=== PATIENT | male | born 1975 | race Caucasian/White ===

== ENCOUNTER 2016-11-21 21:34 | Inpatient (IN) ==
[2016-11-21] MEDS ORDERED: 0.9 % Sodium Chloride 1,000 ML IVC ONE (22:06)
[2016-11-21] MEDS ORDERED: *HR* HYDROmorphone (PF) 1 MG/ML SYRINGE IVP ONE (22:06)
[2016-11-21] MEDS ORDERED: Td (TENIVAC) Vaccine 0.5 ML VIAL IM ONE (22:06)
[2016-11-21] MEDS ORDERED: Ondansetron 4 MG/2 ML VIAL IVP ONE (22:08)
--- NOTE | 2016-11-21 22:09 | Emergency Department Note ---
Disposition Clinical Impression: Cellulitis Qualifiers: Site of cellulitis: extremity Site of cellulitis of extremity: lower extremity Laterality: left Qualified Code(s): L03.116 - Cellulitis of left lower limb Disposition: Admitted As Inpatient Condition: Good Skin/Abscess/FB HPI Chief complaint: ED Skin/Abscess/Foreign Body Stated complaint: L Foot Infecion, NV Time Seen by Provider: 11/21/16 21:51 Source: patient Mode of arrival: ambulatory Limitations: no limitations Nursing Notes Reviewed: Yes Vital Signs Reviewed: Yes HPI Narrative: patient presents to the ED with complaints of infection of the left foot that started about 10 days ago. Denies any trauma, started out as a small red area of the foot. This has become progressively more red, tender, and now is open and draining. Size of approximately 6cm x 6cm with swelling and redness extending to the ankle. He states it is hard for him to walk as his legs hurt. He is also complaining of pain of the right leg with redness of the ankle, lateral malleolus, no injury and swelling of the right upper inner leg and groin. He has further noticed swelling of the wrists. He has had a fever, chills and vomiting for the last 2 days but worse today. No known history of DM, CAD, or CKD. He is a smoker. FMH: mother and sister both known diabetics. Onset (ago): day(s) (10) Tetanus Up to Date: unsure Location: LLE, RLE, L foot Severity: moderate, severe Severity scale (1-10): 10 Quality: aching Consistency: constant, Worsening Improves with: none Worsens with: none Associated symptoms: Reports: fever, chills, nausea, vomiting, malaise, cough Treatments prior to arrival: none Home Medications Medication Instructions Recorded Confirmed Bismuth Subsalicylate 20 ml PO 8XD PRN 05/16/16 11/22/16 [PEPTO-BISMOL (262mg/15mL) Susp] Albuterol Sulfate [Ventolin Hfa] 2 puff IH Q4H PRN 11/22/16 11/22/16 Buprenorphine HCl/Naloxone HCl 1 tab SL BID 11/22/16 11/22/16 [Buprenorphin-Naloxon 8-2 mg Sl] Gabapentin [Neurontin] 800 mg PO TID 11/22/16 11/22/16 Ibuprofen [Motrin] 800 mg PO Q8HR PRN 11/22/16 11/22/16 Lansoprazole [Prevacid] 30 mg PO DAILY 11/22/16 11/22/16 Ondansetron HCl [Zofran] 4 mg PO BID PRN 11/22/16 11/22/16 Ropinirole HCl [Requip] 0.5 mg PO HS 11/22/16 11/22/16 Triamcinolone Acet 0.1% CRM 1 appl TP BID PRN 11/22/16 11/22/16 [Kenalog] Allergies Allergy/AdvReac Type Severity Reaction Status Date / Time acetaminophen [From Vicodin] AdvReac Vomiting Verified 11/21/16 21:52 hydrocodone [From Vicodin] AdvReac Vomiting Verified 11/21/16 21:52 All systems ED: reviewed and negative except as stated. Constitutional: Denies: fever, chills, weakness, weight change Cardiovascular: Denies: chest pain, palpitations, dyspnea on exertion, edema, syncope Respiratory: Denies: cough, dyspnea, wheezes, hemoptysis, stridor Gastrointestinal: Reports: abdominal pain, nausea, vomiting Integumentary: Reports: other (ulceration of the left foot ) Neurological: Denies: headache, weakness, numbness, paresthesias, confusion, abnormal gait, vertigo Past Medical History - Past Medical History Attestation: Yes The following information was validated with the patient. Source: patient, nursing notes reviewed Medical history: Reports: other Surgical history: Reports: cholecystectomy, colectomy, hip replacement, other Psychiatric history: Reports: no psych history - Social History Smoking Status: Current every day smoker Smokeless Tobacco Status: No Alcohol use: Reports: none Drug use: Reports: none, opiates Physical Exam - General Limitations: no limitations General appearance: alert - Head Head exam: atraumatic, normocephalic, normal inspection - Eye Eye exam: Present: normal appearance, PERRL, EOMI - ENT ENT exam: normal exam, normal oropharynx, mucous membranes moist - Neck Neck exam: Present: normal inspection, full ROM, trachea midline - Chest Chest inspection: Present: normal inspection, symmetric chest wall rise - Respiratory Respiratory exam: Present: normal lung sounds bilaterally - Cardiovascular Cardiovascular exam: Present: regular rate, normal rhythm, normal heart sounds. Absent: tachycardia, systolic murmur, diastolic murmur, JVD - Abdominal Exam Abdominal exam: Present: soft, Non-Tender, normal bowel sounds. Absent: tenderness, distention, guarding, rebound, rigidity - Expanded Upper Extremity Exam Shoulder exam: Present: normal inspection, full ROM Arm exam: Present: normal inspection, full ROM Elbow exam: Present: normal inspection, full ROM Forearm/Wrist exam: Present: normal inspection, full ROM Hand exam: Present: normal inspection, full ROM Vascular exam: Normal: capillary refill, radial pulse - Expanded Lower Extremity Exam Hip/Pelvis exam: Present: normal inspection, full ROM Upper leg exam: Present: tenderness (right upper inner thigh, lymph node swelling of the right groin ) Knee exam: Present: normal inspection, full ROM Lower leg exam: Present: normal inspection, full ROM Ankle exam: Present: swelling (bilateral ) Foot/toe exam: Present: erythema (left ) Neurovascular/Tendon exam: Present: normal 2-point discrimination. Absent: motor deficit, sensory deficit, tendon deficit Gait: not tested/not observed - Back Exam Back exam: Present: normal inspection, full ROM. Absent: tenderness - Neurological Exam Neurological exam: Present: alert, oriented X3 - Psychiatric Psychiatric exam: Present: normal affect, normal mood - Skin Skin exam: Present: warm, dry, intact, normal color, erythema (left foot/great toe with ulceration and redness, 6 cm x 6 cm draining ) Course - Reevaluation(s) Reevaluation #1: patient's mother disclosed patient self medicates himself by "shooting up pain pills". It has been difficult obtaining IV access. Patient's mother states when he had to have colonoscopy they had to start his IV in his foot. He denies using any veins of the feet to inject pain medication. States the area on the left foot started as a small red area that was irritated by tight shoes. OARRS report obtained and reveals no prescription pain medication of record. Time: 23:03 Reevaluation #2: discussed all results with the patient and his sister. They feel he would be best if admitted to the hospital. Time: 04:35 - Consultations Consultation #1: paged the hospitalist Time: 04:20 Vital Signs Temperature 98.4 F 11/21/16 21:49 Pulse Rate 70 11/21/16 21:49 Respiratory Rate 20 11/21/16 21:49 Blood Pressure 115/78 11/21/16 21:49 O2 Sat by Pulse Oximetry 98 11/21/16 21:49 Temperature 98.0 F 11/22/16 07:26 Pulse Rate 56 11/22/16 07:26 Respiratory Rate 16 11/22/16 07:26 Blood Pressure 124/76 11/22/16 07:26 O2 Sat by Pulse Oximetry 98 11/22/16 07:26 Oxygen Delivery Oxygen Delivery Room Air Skin/Abscess/Foreign Body - Lab Data Result diagrams: 11/22/16 00:20 11/22/16 00:20 Lab Results 11/22/16 11/22/16 11/22/16 Range/Units 00:20 00:20 00:20 WBC 8.5 (4.3-11.1) K/mcL RBC 3.72 L (4.19-5.50) M/mcL Hgb 11.3 L (12.9-16.9) g/dL Hct 32.4 L (37.5-50.1) % MCV 87.1 (83.0-100.0) fL MCH 30.4 (28.0-33.3) pg MCHC 34.9 (31.6-35.5) g/dL RDW 13.6 (11.5-14.5) % Plt Count 106 L (140-400) K/mcL MPV 10.7 (9.4-12.4) fL Immature Gran % 0.4 (0-4) % Seg Neutrophils % 64.6 % Lymphocytes % 22.5 % Monocytes % 12.0 % Eosinophils % 0.4 % Basophils % 0.1 % Neutrophils # 5.5 (1.6-8.9) K/mcL Lymphocytes # 1.9 (0.6-4.6) K/mcL Monocytes # 1.0 (0.0-1.3) K/mcL Eosinophils # 0.0 (0.0-0.6) K/mcL Basophils # 0.0 (0.0-0.2) K/mcL ESR (0-10) mm/hr Sodium 139 (136-145) mEq/L Potassium 2.9 L (3.5-4.5) mEq/L Chloride 104 (98-109) mEq/L Carbon Dioxide 27 (19-29) mEq/L BUN 8 (8-26) mg/dL Creatinine 0.85 (0.72-1.25) mg/dL Est GFR ( Amer) > 60 (> 60) Est GFR (Non-Af Amer) > 60 (> 60) BUN/Creatinine Ratio 9 (6-26) Glucose 96 (70-99) mg/dL Est Mean Plasma Glucose 97 mg/dl Hemoglobin A1c 5.0 ( - 5.6) % Calculated Osmolality 286 (280-300) Lactic Acid (0.5-2.2) mmol/L Calcium 8.5 L (8.6-10.8) mg/dL C-Reactive Protein 84 H (Less than 5) mg/L 11/22/16 11/22/16 Range/Units 03:00 03:05 WBC (4.3-11.1) K/mcL RBC (4.19-5.50) M/mcL Hgb (12.9-16.9) g/dL Hct (37.5-50.1) % MCV (83.0-100.0) fL MCH (28.0-33.3) pg MCHC (31.6-35.5) g/dL RDW (11.5-14.5) % Plt Count (140-400) K/mcL MPV (9.4-12.4) fL Immature Gran % (0-4) % Seg Neutrophils % % Lymphocytes % % Monocytes % % Eosinophils % % Basophils % % Neutrophils # (1.6-8.9) K/mcL Lymphocytes # (0.6-4.6) K/mcL Monocytes # (0.0-1.3) K/mcL Eosinophils # (0.0-0.6) K/mcL Basophils # (0.0-0.2) K/mcL ESR 66 H (0-10) mm/hr Sodium (136-145) mEq/L Potassium (3.5-4.5) mEq/L Chloride (98-109) mEq/L Carbon Dioxide (19-29) mEq/L BUN (8-26) mg/dL Creatinine (0.72-1.25) mg/dL Est GFR ( Amer) (> 60) Est GFR (Non-Af Amer) (> 60) BUN/Creatinine Ratio (6-26) Glucose (70-99) mg/dL Est Mean Plasma Glucose mg/dl Hemoglobin A1c ( - 5.6) % Calculated Osmolality (280-300) Lactic Acid 0.7 (0.5-2.2) mmol/L Calcium (8.6-10.8) mg/dL C-Reactive Protein (Less than 5) mg/L Attestation Statement - Attestation Attestation: I, Malvin Urena, examined this patient and my medical decision-making was reviewed with the LOCATION DIRECTOR/PA/Advanced Practice Nurse/Resident Physician. I agree with the documented findings, disposition and treatment plan as described except to the extent set forth below. 40-year-old male presents with concerns of infection to the left foot. Patient states he had significant swelling erythema and pain to left foot over the past 1-2 weeks. Started as a small injury and progressed. He reports subjective fever at home. He reports multiple episodes of emesis. Denies syncope. Patient is unable ambulate secondary to pain. CT of the left foot and the ESR and CRP are within normal limits. She will be treated for cellulitis of the left foot with IV antibiotics and admitted for further care.
[2016-11-22 00:30] LABS: Basophils % 0.1 %; Eosinophils % 0.4 %; Hematocrit 32.4 % (37.5-50.1); Hemoglobin 11.3 g/dL (12.9-16.9); Immature Granulocytes % 0.4 % (0-4); Lymphocytes # 1.9 K/mcL (0.6-4.6); Lymphocytes % 22.5 %; Mean Corpuscular HGB Conc 34.9 g/dL (31.6-35.5); Mean Corpuscular Hemoglobin 30.4 pg (28.0-33.3); Mean Corpuscular Volume 87.1 fL (83.0-100.0); Mean Platelet Volume 10.7 fL (9.4-12.4); Neutrophils # 5.5 K/mcL (1.6-8.9); Platelet Count 106 K/mcL (140-400); Red Blood Count 3.72 M/mcL (4.19-5.50); Red Cell Distribution Width 13.6 % (11.5-14.5); Segmented Neutrophils % 64.6 %
[2016-11-22 00:43] LABS: BUN/Creatinine Ratio 9 (6-26); Blood Urea Nitrogen 8 mg/dL (8-26); Calcium 8.5 mg/dL (8.6-10.8); Carbon Dioxide 27 mEq/L (19-29); Chloride 104 mEq/L (98-109); Glucose 96 mg/dL (70-99); Osmolality,Calculated 286 (280-300); Potassium 2.9 mEq/L (3.5-4.5); Sodium 139 mEq/L (136-145); eGFR For African Americans > 60 (> 60); eGFR For Non-African Americans > 60 (> 60)
[2016-11-22] MEDS ORDERED: Piperacillin/Tazobactam 3.375 GM in D5% in Water (Mini-Bag+) 100 ML IVPB ONE (03:03)
[2016-11-22 03:22] LABS: C-Reactive Protein 84 mg/L (Less than 5)
[2016-11-22] MEDS ORDERED: Vancomycin 1,000 MG in D5% in Water 250 ML IVPB SCH (05:38)
[2016-11-22] MEDS ORDERED: Naloxone 0.4 MG/ML INJ IVP PRN (05:39)
[2016-11-22] MEDS ORDERED: Ondansetron 4 MG/2 ML VIAL IVP PRN (05:39)
[2016-11-22] MEDS ORDERED: *HR* Morphine 2 MG/ML SYRINGE IVP PRN ×2 (05:40→11:36)
[2016-11-22] MEDS ORDERED: Potassium Chloride 40 MEQ, Lidocaine 1% 2 ML in D5% in Water 500 ML IVPB ONE (05:40)
[2016-11-22] MEDS ORDERED: *HR* OxyCODONE/APAP 5/325 TABLET PO PRN (05:55)
--- NOTE | 2016-11-22 06:02 | Internal Med History&Physical ---
Date of Encounter: 11/22/16 Time of Encounter: 05:56 Assessment and Plan (1) Foot ulcer, left Current visit: Yes Status: Acute given elevated ESR and clinical evaluation, will empirically treat with IV abx continue Vancomycin and Zosyn de-escalate therapy as per clinical response and culture results f/u blood cultures wound care pain control (pt denies any adverse reaction or allergy to morphine and oxycodone) Qualifiers: Non-pressure ulcer stage: limited to breakdown of skin Qualified Code(s): L97.521 - Non-pressure chronic ulcer of other part of left foot limited to breakdown of skin (2) Hypokalemia Current visit: Yes Status: Acute K supplemented continue to monitor electrolytes and replace as needed (3) DVT prophylaxis Current visit: Yes Status: Acute Heparin SQ (4) Tobacco abuse Current visit: Yes Status: Acute smoking cessation counseling provided nicotine supplementation provided Internal Medicine - H&P: HPI Chief complaint: left foot pain Admitted From: Home Plans for Post Hospital Care: Home History of present illness: Mr. Santos is a 40 year old male with PMH of dysphagia, drug abuse, tobacco abuse who presents to ER for evaluation of worsening left foot ulcer and pain. Patient states it initially started off as a blister about 10 days ago and gradually has progressed to it's current status. Denies any trauma. Believes it was his shoes that gave him the initial blister and does not recall any trauma after. At this time patient is noted to have round ulcer at the left metatarsal head that is 6cm x 6cm with surrounding erythema and clear discharge. Reports of severe pain with difficulty with ambulation. Reports of being in good health apart from this. States he used to have history of opioid abuse but has been clean for over a year. Also states his dysphagia symptoms have resolved and currently does not take any medications at home. Reports of being an every day smoker. Denies any other discomfort at this time. No chest pain, sob, abd pain, fever, or chills. Past Med Surg Social Fam HX - Past Medical History Medical history: other Psychiatric history: no psych history - Past Surgical History Surgical History: cholecystectomy, colectomy, hip replacement, other - Social History Smoking Status: Current every day smoker Smokeless Tobacco Status: No Alcohol use: none Drug use: none, opiates Internal Medicine - H&P: Meds Bismuth Subsalicylate [PEPTO-BISMOL (262mg/15mL) Susp] 20 ml PO 8XD 05/16/16 [ History] Gabapentin [Neurontin] 300 mg PO TID 05/16/16 [History] Ibuprofen [Motrin] 200 mg PO Q6HR PRN 05/16/16 [History] Omeprazole [PriLOSEC] 40 mg PO DAILY 05/16/16 [History] Tramadol HCl [Ultram] 50 mg PO Q6-8H PRN 05/16/16 [History] Allergies acetaminophen [From Vicodin] Adverse Reaction (Verified 11/21/16 21:52) Vomiting hydrocodone [From Vicodin] Adverse Reaction (Verified 11/21/16 21:52) Vomiting All Systems PM: A 10-system review of systems was performed and is negative for pertinent findings except as documented above in the HPI. - Constitutional Constitutional: as per HPI - Constitutional Vitals: Temp Pulse Resp BP Pulse Ox 98.4 F 51 18 120/78 96 11/21/16 21:49 11/22/16 05:20 11/22/16 05:20 11/22/16 05:20 11/22/16 05:20 General appearance: Present: cooperative, A&O X 3, no acute distress, answers questions appropriately - Head Head exam: Present: atraumatic, normocephalic - Eye Eye exam: Present: normal appearance, conjuntiva pink, sclera anicteric - Respiratory Respiratory exam: Present: CTAB. Absent: accessory muscle use, rales, rhonchi, wheezes - Cardiovascular Cardiovascular exam: Present: bradycardia (asymptomatic and reports of chronically having slow HR), +S1, +S2 - GI/Abdominal GI/Abdominal exam: Present: normal bowel sounds, soft, no peritoneal signs. Absent: distended, tenderness - Extremities Exam Extremities exam: Present: warm, radial pulses palpable and symetrical. Absent : calf tenderness, pedal edema (round 6cm x 6cm ulceration noted at the left metatarsal head ) - Neurological Exam Neurological exam: Present: alert, oriented X3 - Psychiatric Psychiatric exam: Present: normal affect, normal mood Internal Med - H&P Results - Labs CBC & Chem 7: 11/22/16 00:20 11/22/16 00:20
[2016-11-22] MEDS: Vancomycin 1,250 MG in D5% in Water 250 ML IVPB SCH ×2 (06:28→19:45)
[2016-11-22] MEDS: Nicotine 21 MG PATCH.TD24 TD SCH ×2 (07:46→08:39)
[2016-11-22] MEDS ORDERED: Aminoglycoside Consult 1 EACH MC ONE (08:08)
[2016-11-22] MEDS ORDERED: traMADol 50 MG TABLET PO PRN (11:26)
[2016-11-22] MEDS ORDERED: Bismuth Subsalicylate 120 ML ORAL SUSPENSION PO PRN (11:36)
--- NOTE | 2016-11-22 11:45 | Event Note ---
Date of Encounter: 11/22/16 Time of Encounter: 09:15 Patient seen and examined. On examination, patient resting supine in bed. Patient stating his pain is severe and uncontrolled. He states that he has to keep his foot covered "because the air makes it burn." CT of negative for osteomyelitis. Patient is not diabetic-A1c 5.0%. Inflammatory markers elevated , will trend. Continue vancomycin and Zosyn and follow culture results. Hypokalemia noted and has been replaced, will recheck in the morning as well as a magnesium level. Patient has never had wounds like this before, podiatry brought on board, appreciate their recommendations. Patient with remote history of IV drug abuse, patient stating he has been clean for 1 year. He is endorsing compliance with Suboxone. According Suboxone at this time and giving pain medications. OARRS report checks out for Suboxone and gabapentin. ITS Impressions Foot CT 11/22/16 03:01 IMPRESSION: No radiographic evidence for osteomyelitis. D/ / Tariq Parks MD / Tariq Parks MD Interpreting Provider: Tariq Parks MD
[2016-11-22] MEDS: Piperacillin/Tazobactam 3.375 GM in D5% in Water (Mini-Bag+) 100 ML IVPB SCH ×3 (12:38→23:57)
--- NOTE | 2016-11-22 13:02 | Podiatry Consult Note ---
Date of Encounter: 11/22/16 Time of Encounter: 12:00 Assessment and Plan (1) Foot ulcer, left Current visit: Yes Status: Acute Ulceration to the medial aspect of the left metatarsal head secondary to a blister. Ulceration is scabbed, unable to express any drainage. There is light periwound erythema present, no streaking, no ascending cellulitis, no fluctuance , no warmth. ESR: 66, CRP: 84, WBC: 8.[address] of the foot was negative for osteomyelitis or any fluid collection. No surgical intervention needed at this time. Wound cultures obtained and pending. We will continue to monitor the wound. Recommend daily wound care and oral antibiotics based on sensitivity report upon discharge. Wound care: cleanse ulcer daily, pat dry, apply dry sterile 4x4 gauze, kerlix and tape. Will need post op shoe upon discharge. F/u in Podiatry clinic with in one week of discharge from hospital. Consulted with Dr. Melara and agreeable with plan of care. Qualifiers: Non-pressure ulcer stage: limited to breakdown of skin Qualified Code(s): L97.521 - Non-pressure chronic ulcer of other part of left foot limited to breakdown of skin History of Present Illness HPI: Mr. Santos is a 40 year old male admitted to [facility] for an ulceration to the left foot and hypokalemia. Patient states a blister started to the medial aspect of his left foot 2 weeks ago from his tennis shoe. Patient states his foot became progressively red, swollen, and painful. No known injury or trauma. Rates pain to the left foot currently at a 7 out of 10. Patient denies any fever, chills, nausea vomiting or flulike symptoms. Patient denies any history of diabetes mellitus. Patient denies any history of drug abuse. After reviewing chart patient does have a history of IV drug abuse and is on Suboxone. Past Med Surg Social Fam HX - Past Medical History Medical history: other Psychiatric history: no psych history - Past Surgical History Surgical History: cholecystectomy, colectomy, hip replacement, other - Social History Smoking Status: Current every day smoker Smokeless Tobacco Status: No Alcohol use: none Drug use: none, opiates Medications and Allergies Bismuth Subsalicylate [PEPTO-BISMOL (262mg/15mL) Susp] 20 ml PO 8XD PRN [History] Albuterol Sulfate [Ventolin Hfa] 2 puff IH Q4H PRN 11/22/16 [History] Buprenorphine HCl/Naloxone HCl [Buprenorphin-Naloxon 8-2 mg Sl] 1 tab SL BID [History] Gabapentin [Neurontin] 800 mg PO TID 11/22/16 [History] Ibuprofen [Motrin] 800 mg PO Q8HR PRN 11/22/16 [History] Lansoprazole [Prevacid] 30 mg PO DAILY 11/22/16 [History] Ondansetron HCl [Zofran] 4 mg PO BID PRN 11/22/16 [History] Ropinirole HCl [Requip] 0.5 mg PO HS 11/22/16 [History] Triamcinolone Acet 0.1% CRM [Kenalog] 1 appl TP BID PRN 11/22/16 [History] Allergies acetaminophen [From Vicodin] Adverse Reaction (Verified 11/21/16 21:52) Vomiting hydrocodone [From Vicodin] Adverse Reaction (Verified 11/21/16 21:52) Vomiting All Systems Reviewed: A 10-system review of systems was performed and is negative for pertinent findings except as documented above in the HPI. Physical Exam - Constitutional Vitals: Temp Pulse Resp BP Pulse Ox 98.1 F 52 16 123/84 98 11/22/16 12:05 11/22/16 12:05 11/22/16 12:05 11/22/16 12:05 11/22/16 12:05 Exam: General appearance: alert awake oriented X 3. Calm and pleasant, no acute distress.. Vascular: Pedal pulses +2/4 DP/PT , No evidence of cyanosis, pallor or rubor, Edema graded at 1+/4, Skin Temperature warm, No calf pain with manual compression. capillary refill time is immediate to digits. Neurologic: Sensation intact with light touch to both feet Wound: Ulceration to the medial aspect of the left foot at the 1st metatarsal head measuring 6 cm in length x 6 cm in width. Dried scab to base of wound with light periwound erythema, no streaking, no ascending cellulitis, no pus, no odor , no active drainage, no fluctuance, no warmth. Results - Labs Result Diagrams: 11/22/16 00:20 11/22/16 00:20 Labs: Abnormal lab results RBC 3.72 M/mcL (4.19-5.50) L 11/22/16 00:20 Hgb 11.3 g/dL (12.9-16.9) L 11/22/16 00:20 Hct 32.4 % (37.5-50.1) L 11/22/16 00:20 Plt Count 106 K/mcL (140-400) L 11/22/16 00:20 ESR 66 mm/hr (0-10) H 11/22/16 03:05 Potassium 2.9 mEq/L (3.5-4.5) L 11/22/16 00:20 Calcium 8.5 mg/dL (8.6-10.8) L 11/22/16 00:20 C-Reactive Protein 84 mg/L (Less than 5) H 11/22/16 00:20 All other labs normal. Consult Discharge Plan - Plan Referrals: Radha Pike MD [Non-Partnered Physician] -
[2016-11-22] MEDS: *HR* Heparin 5,000 UNIT/ML VIAL SQ SCH ×2 (15:33→21:11)
[2016-11-22] MEDS: Gabapentin 400 MG CAPSULE PO SCH ×2 (15:33→19:55)
[2016-11-22] MEDS: Ibuprofen 400 MG TABLET PO PRN (15:34)
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
[2016-11-22] MEDS: *HR* HYDROmorphone (PF) 1 MG/ML SYRINGE IVP PRN ×3 (16:59→22:39)
[2016-11-22] MEDS: rOPINIRole 0.25 MG TABLET PO SCH (19:56)
[2016-11-23] MEDS: *HR* HYDROmorphone (PF) 1 MG/ML SYRINGE IVP PRN ×9 (03:05→23:59)
[2016-11-23 03:45] LABS: blaKPC Carbapenem-Resist Gene Not Detected (Not Detect)
[2016-11-23 03:46] LABS: Acinetobacter baumannii by PCR Not Detected (Not Detect); Candida albicans by PCR Not Detected (Not Detect); Candida glabrata by PCR Not Detected (Not Detect); Candida krusei by PCR Not Detected (Not Detect); Candida parapsilosis by PCR Not Detected (Not Detect); Candida tropicalis by PCR Not Detected (Not Detect); Enterococcus by PCR Not Detected (Not Detect); Escherichia coli by PCR Not Detected (Not Detect); Klebsiella oxytoca by PCR Not Detected (Not Detect); Klebsiella pneumoniae by PCR Not Detected (Not Detect); Pseudomonas aeruginosa by PCR Not Detected (Not Detect); Serratia marcescens by PCR Not Detected (Not Detect); Staphylococcus aureus by PCR Not Detected (Not Detect); Streptococcus agalactiae(B)PCR Not Detected (Not Detect); Streptococcus by PCR Not Detected (Not Detect); Streptococcus pneumoniae PCR Not Detected (Not Detect); Streptococcus pyogenes (A) PCR Not Detected (Not Detect)
[2016-11-23] MEDS: Vancomycin 1,250 MG in D5% in Water 250 ML IVPB SCH (05:27)
[2016-11-23] MEDS: *HR* Heparin 5,000 UNIT/ML VIAL SQ SCH ×3 (05:30→20:14)
[2016-11-23] MEDS: Gabapentin 400 MG CAPSULE PO SCH ×3 (08:45→20:16)
[2016-11-23] MEDS: Piperacillin/Tazobactam 3.375 GM in D5% in Water (Mini-Bag+) 100 ML IVPB SCH ×3 (08:45→23:58)
[2016-11-23] MEDS: Nicotine 21 MG PATCH.TD24 TD SCH (08:55)
[2016-11-23 09:06] LABS: BUN/Creatinine Ratio 8 (6-26); Blood Urea Nitrogen 6 mg/dL (8-26); Calcium 7.9 mg/dL (8.6-10.8); Carbon Dioxide 25 mEq/L (19-29); Chloride 107 mEq/L (98-109); Glucose 86 mg/dL (70-99); Magnesium 1.2 mg/dL (1.6-2.6); Osmolality,Calculated 283 (280-300); Phosphorous 2.8 mg/dL (2.3-4.7); Potassium 3.1 mEq/L (3.5-4.5); Sodium 138 mEq/L (136-145); eGFR For African Americans > 60 (> 60); eGFR For Non-African Americans > 60 (> 60)
[2016-11-23 09:25] LABS: C-Reactive Protein 74 mg/L (Less than 5)
[2016-11-23 09:32] LABS: Basophils % 0.3 %; Eosinophils # 0.2 K/mcL (0.0-0.6); Eosinophils % 2.1 %; Hematocrit 30.9 % (37.5-50.1); Hemoglobin 10.8 g/dL (12.9-16.9); Immature Granulocytes % 0.5 % (0-4); Lymphocytes # 2.2 K/mcL (0.6-4.6); Lymphocytes % 29.2 %; Mean Corpuscular Hemoglobin 29.9 pg (28.0-33.3); Mean Corpuscular Volume 85.6 fL (83.0-100.0); Mean Platelet Volume 11.1 fL (9.4-12.4); Monocytes # 0.9 K/mcL (0.0-1.3); Monocytes % 11.4 %; Neutrophils # 4.3 K/mcL (1.6-8.9); Platelet Count 125 K/mcL (140-400); Red Blood Count 3.61 M/mcL (4.19-5.50); Red Cell Distribution Width 13.2 % (11.5-14.5); Segmented Neutrophils % 56.5 %
[2016-11-23] MEDS ORDERED: *HR* Heparin 5,000 UNIT/ML VIAL IVP ONE (11:45)
[2016-11-23] MEDS ORDERED: *HR* Heparin 5,000 UNIT/ML VIAL IVP PRN (11:45)
[2016-11-23 12:51] LABS: Hematocrit 32.6 % (37.5-50.1); Hemoglobin 11.4 g/dL (12.9-16.9); Mean Corpuscular Hemoglobin 29.8 pg (28.0-33.3); Mean Corpuscular Volume 85.3 fL (83.0-100.0); Platelet Count 129 K/mcL (140-400); Red Blood Count 3.82 M/mcL (4.19-5.50); Red Cell Distribution Width 13.2 % (11.5-14.5)
[2016-11-23 13:01] LABS: INR 1.3; Prothrombin Time 14.3 Seconds (9.4-12.1)
[2016-11-23 13:04] LABS: Activated Partial Thrombo Time 33.6 Seconds (26.0-36.0)
[2016-11-23] MEDS: Heparin 25,000 UNIT/500 ML D5W 25,000 UNIT/500 ML MLS IVC SCH (13:46)
[2016-11-23] MEDS ORDERED: 0.9 % Sodium Chloride 1,000 ML ONE (13:48)
--- NOTE | 2016-11-23 16:40 | Podiatry Progress Note ---
Date of Encounter: 11/24/16 Time of Encounter: 16:00 - Assessment and Plan (1) Foot ulcer, left Current Visit: Yes Status: Acute Ulceration to the medial aspect of the left metatarsal head secondary to a blister. Ulceration is scabbed, unable to express any drainage. There is light periwound erythema present, no streaking, no ascending cellulitis, no fluctuance , no warmth. Xray of left foot negative for fracture, dislocation, or bony erosion. CT of the foot was negative for osteomyelitis or any fluid collection. No surgical intervention needed at this time. Wound cultures obtained and pending. We will continue to monitor the wound. Recommend daily wound care and antibiotics per Hospitalist. Blood culture growing Enterobacteriacae group. Wound care: cleanse ulcer daily, pat dry, apply dry sterile 4x4 gauze, kerlix and tape. Will need post op shoe upon discharge. F/u in Podiatry clinic with in one week of discharge from hospital. Consulted with Dr. Melara and agreeable with plan of care. Qualifiers: Non-pressure ulcer stage: limited to breakdown of skin Qualified Code(s): L97.521 - Non-pressure chronic ulcer of other part of left foot limited to breakdown of skin (2) Thrombosis of right lower extremity Current Visit: Yes Status: Acute Preliminary report showed right GSV thrombus from CFV to below the knee. Left lower extremity no DVT or SVT. Currently on Herparin drip. Subjective Interval history: Podiatry was consulted yesterday for an ulcer to the left foot. Wound care ordered for daily dressing changes. A dressing is dry and intact to the left foot. He rates his left foot pain at a 6 out of 10. During the exam yesterday patient denied drug abuse. 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 He states the wound to the left foot was not from injecting. He states a metal alix indented his steel toed boots which caused a blister to form. Patient had a venous duplex done of BLE and Preliminary report showed right GSV thrombus from CFV to below the knee. Left lower extremity no DVT or SVT. No c/o fever or chills overnight. Objective - Vital Signs Vital Signs: Vital Signs Temp Pulse Resp BP Pulse Ox 11/23/16 11:43 98.2 F 56 16 125/81 99 11/23/16 07:03 98.8 F 60 16 123/81 98 11/23/16 02:57 98.7 F 67 14 146/87 97 11/23/16 00:06 98.7 F 52 17 106/65 97 11/22/16 19:40 99 11/22/16 19:17 98.0 F 54 17 112/64 99 Intake and Output 11/23/16 11/23/16 11/23/16 07:59 15:59 23:59 Intake Total 800 / 800 720 / 720 Output Total 350 / 350 Balance 450 / 450 720 / 720 Intake: IV Fluids 100 / 100 Zosyn 3.375 GM In 100 / 100 Dextrose 5% (Minibag+) 100 ML 100 ML @ 25 mls/hr IVPB Q8HR [facility] Rx#: [id number] Oral 700 / 700 720 / 720 Output: Urine 350 / 350 Other: Meal Lunch Percent of Meal Consumed 40% Weight 67.585 kg Patient Weight 11/23/16 23:59 Weight 67.585 kg - Exam Exam: General appearance: alert awake oriented X 3. Calm and pleasant, no acute distress.. Vascular: Pedal pulses +2/4 DP/PT , No evidence of cyanosis, pallor or rubor, Edema graded at 1+/4, Skin Temperature warm, No calf pain with manual compression. capillary refill time is immediate to digits. Neurologic: Sensation intact with light touch to both feet Wound: Ulceration to the medial aspect of the left foot at the 1st metatarsal head measuring 2 cm in length x 2 cm in width. Dried scab to base of wound with light periwound erythema, no streaking, no ascending cellulitis, no pus, no odor , no active drainage, no fluctuance, no warmth. Localized erythema to the medial maleolus, right with pinpoint scabs secondary to injection. No warmth, no open area, no fluctuance, no evidence of bacterial infection, no streaking, no ascending cellulitis. - Lab Result Diagrams: 11/23/16 12:41 11/23/16 08:17 Labs: Abnormal lab results RBC 3.82 M/mcL (4.19-5.50) L 11/23/16 12:41 Hgb 11.4 g/dL (12.9-16.9) L 11/23/16 12:41 Hct 32.6 % (37.5-50.1) L 11/23/16 12:41 Plt Count 129 K/mcL (140-400) L 11/23/16 12:41 ESR 97 mm/hr (0-10) H 11/23/16 08:17 PT 14.3 Seconds (9.4-12.1) H 11/23/16 12:41 Potassium 3.1 mEq/L (3.5-4.5) L 11/23/16 08:17 BUN 6 mg/dL (8-26) L 11/23/16 08:17 Calcium 7.9 mg/dL (8.6-10.8) L 11/23/16 08:17 Magnesium 1.2 mg/dL (1.6-2.6) L 11/23/16 08:17 C-Reactive Protein 74 mg/L (Less than 5) H 11/23/16 08:17 Enterobacteriac sp PCR DETECTED (Not Detect) A 11/22/16 00:20 Consult Discharge Plan - Plan Referrals: Radha Pike MD [Non-Partnered Physician] -
--- NOTE | 2016-11-23 17:09 | Internal Med Progress Note ---
Date of Encounter: 11/23/16 Time of Encounter: 17:06 - Assessment and plan (1) Thrombosis of right lower extremity Current Visit: Yes Status: Acute Assessment and plan: most likely 2/2 IVDU with bacteremia, not septic at this time. will start on heparin drip will switch to oral AC once ready for dc. (2) Bacteremia due to Enterobacter species Current Visit: Yes Status: Acute Assessment and plan: source possible IVDA vs the rt. foot wound. blood cx growing enterobacter species. will continue zosyn, dc vanco. no fever, no leucocytosis. will repeat blood cx today. follow final cx sensitivity result will order ECHO> will most likely need 2 weeks of IV antibiotics(starting from the day of the negative blood cx) patinet is high risk given bacteremia and need for roasterman IV antibiotics. (3) Foot ulcer, left Current Visit: Yes Status: Acute Assessment and plan: management as per podiatry Qualifiers: Non-pressure ulcer stage: limited to breakdown of skin Qualified Code(s): L97.521 - Non-pressure chronic ulcer of other part of left foot limited to breakdown of skin (4) Cellulitis Current Visit: Yes Status: Acute Assessment and plan: CT rt. leg shows cellulitis medial aspect of the thigh. no abscess, no surgical intervention needed at this time minimal redness and swelling at this time. will continue zosyn for now. Qualifiers: Site of cellulitis: extremity Site of cellulitis of extremity: lower extremity Laterality: left Qualified Code(s): L03.116 - Cellulitis of left lower limb - Subjective Interval history: patinet seen at the bedside, c/o pain on the right medial thigh. no fever, rt. foot wound being followed by podiatry. denies chest pain or sob. admits to shooting IV drugs recently. - Constitutional Vitals: Temp Pulse Resp BP Pulse Ox 98.2 F 56 16 125/81 99 11/23/16 11:43 11/23/16 11:43 11/23/16 11:43 11/23/16 11:43 11/23/16 11:43 General appearance: Present: cooperative, A&O X 3, no acute distress, answers questions appropriately Internal Medicine: Result - Labs CBC & Chem 7: 11/23/16 12:41 11/23/16 08:17 Labs: Short CBC 11/23/16 11/23/16 Range/Units 08:17 12:41 WBC 7.6 7.4 (4.3-11.1) K/mcL Hgb 10.8 L 11.4 L (12.9-16.9) g/dL Hct 30.9 L 32.6 L (37.5-50.1) % Plt Count 125 L 129 L (140-400) K/mcL Neutrophils # 4.3 (1.6-8.9) K/mcL BMP 11/23/16 08:17 Sodium 138 Potassium 3.1 L Chloride 107 Carbon Dioxide 25 BUN 6 L Creatinine 0.72 Glucose 86 Calcium 7.9 L - ABG Interpretation ABG results: PT/INR, D-dimer PT 14.3 Seconds (9.4-12.1) H 11/23/16 12:41 - Impressions Impressions Lower Extremity CT 11/23/16 03:29 IMPRESSION: Cellulitis of the medial thigh and medial proximal lower leg without abscess or evidence for osteomyelitis. D/ / Tariq Parks MD / Tariq Parks MD Interpreting Provider: Tariq Parks MD Consult Discharge Plan - Plan Referrals: Radha Pike MD [Non-Partnered Physician] -
[2016-11-23] MEDS: rOPINIRole 0.25 MG TABLET PO SCH (20:16)
[2016-11-23] MEDS: *HR* Heparin 5,000 UNIT/ML VIAL IVP PRN (21:02)
[2016-11-24] MEDS: *HR* HYDROmorphone (PF) 1 MG/ML SYRINGE IVP PRN ×8 (02:34→23:04)
[2016-11-24] MEDS: *HR* Heparin 5,000 UNIT/ML VIAL IVP PRN ×2 (03:18→11:08)
[2016-11-24] MEDS: Nicotine 21 MG PATCH.TD24 TD SCH (08:05)
[2016-11-24] MEDS: Gabapentin 400 MG CAPSULE PO SCH ×3 (08:05→20:42)
[2016-11-24] MEDS: Piperacillin/Tazobactam 3.375 GM in D5% in Water (Mini-Bag+) 100 ML IVPB SCH ×3 (08:06→23:04)
[2016-11-24] MEDS: Heparin 25,000 UNIT/500 ML D5W 25,000 UNIT/500 ML MLS IVC SCH (14:32)
--- NOTE | 2016-11-24 15:08 | Podiatry Progress Note ---
Date of Encounter: 11/24/16 Time of Encounter: 12:15 - Assessment and Plan (1) Foot ulcer, left Current Visit: Yes Status: Acute Ulceration to the medial aspect of the left metatarsal head secondary to a blister. Ulceration is scabbed, unable to express any drainage. Decreased periwound erythema present, no streaking, no ascending cellulitis, no fluctuance, no warmth. No regression in ulceration. Xray of left foot negative for fracture, dislocation, or bony erosion. CT of the foot was negative for osteomyelitis or any fluid collection. No surgical intervention needed at this time. We will continue to monitor the wound. Recommend daily wound care and antibiotics per Hospitalist. Blood culture growing Enterobacteriacae group. Wound care: cleanse ulcer daily, pat dry, apply dry sterile 4x4 gauze, kerlix and tape. Will need post op shoe upon discharge. F/u in Podiatry clinic with in one week of discharge from hospital. Consulted with Dr. Melara and agreeable with plan of care. Qualifiers: Non-pressure ulcer stage: limited to breakdown of skin Qualified Code(s): L97.521 - Non-pressure chronic ulcer of other part of left foot limited to breakdown of skin (2) Thrombosis of right lower extremity Current Visit: Yes Status: Acute Preliminary report showed right GSV thrombus from CFV to below the knee. Left lower extremity no DVT or SVT. Currently on Heparin drip. Subjective Interval history: Patient is sitting A dressing is dry and intact to the left foot. He rates his left foot pain at a 6 out of 10. Patient had a venous duplex done of BLE and Preliminary report showed right GSV thrombus from CFV to below the knee. Left lower extremity no DVT or SVT. No c/o fever or chills overnight. Objective - Vital Signs Vital Signs: Vital Signs Temp Pulse Resp BP Pulse Ox 11/24/16 14:57 98.2 F 55 16 114/72 98 11/24/16 10:59 98.0 F 58 16 119/72 98 11/24/16 07:09 98.2 F 53 16 142/95 97 11/23/16 22:56 99.0 F 57 15 127/82 97 11/23/16 20:24 98 11/23/16 19:49 100.0 F H 61 15 133/86 98 Intake and Output 11/23/16 11/24/16 11/24/16 23:59 07:59 15:59 Intake Total 635 / 635 727 / 727 938 / 938 Output Total 300 / 300 700 / 700 450 / 450 Balance 335 / 335 27 / 27 488 / 488 Intake: IV Fluids 235 / 235 227 / 227 338 / 338 Heparin 25,000 UNIT/500 135 / 135 127 / 127 238 / 238 ML D5W 25,000 unit In 500 ml @ 14 UNIT/KG/HR 18. 924 mls/hr IVC .Q24H [facility] Rx#:[id number] Zosyn 3.375 GM In 100 / 100 100 / 100 100 / 100 Dextrose 5% (Minibag+) 100 ML 100 ML @ 25 mls/hr IVPB Q8HR [facility] Rx#: [id number] Oral 400 / 400 500 / 500 600 / 600 Output: Urine 300 / 300 700 / 700 450 / 450 Other: Meal Lunch Percent of Meal Consumed 75% - Exam Exam: General appearance: alert awake oriented X 3. Calm and pleasant, no acute distress.. Vascular: Pedal pulses +2/4 DP/PT , No evidence of cyanosis, pallor or rubor, Edema graded at 1+/4, Skin Temperature warm, No calf pain with manual compression. capillary refill time is immediate to digits. Neurologic: Sensation intact with light touch to both feet Wound: Ulceration to the medial aspect of the left foot at the 1st metatarsal head measuring 2 cm in length x 2 cm in width. Dried scab to base of wound with light periwound erythema, no streaking, no ascending cellulitis, no pus, no odor , no active drainage, no fluctuance, no warmth. Localized erythema to the medial malleolus, right with pinpoint scabs secondary to IV drug use. No warmth, no open area, no fluctuance, no evidence of bacterial infection, no streaking, no ascending cellulitis. - Lab Result Diagrams: 11/23/16 12:41 11/23/16 08:17 Labs: Abnormal lab results RBC 3.82 M/mcL (4.19-5.50) L 11/23/16 12:41 Hgb 11.4 g/dL (12.9-16.9) L 11/23/16 12:41 Hct 32.6 % (37.5-50.1) L 11/23/16 12:41 Plt Count 129 K/mcL (140-400) L 11/23/16 12:41 ESR 97 mm/hr (0-10) H 11/23/16 08:17 PT 14.3 Seconds (9.4-12.1) H 11/23/16 12:41 APTT 54.6 Seconds (26.0-36.0) H 11/24/16 09:20 Potassium 3.1 mEq/L (3.5-4.5) L 11/23/16 08:17 BUN 6 mg/dL (8-26) L 11/23/16 08:17 Calcium 7.9 mg/dL (8.6-10.8) L 11/23/16 08:17 Magnesium 1.2 mg/dL (1.6-2.6) L 11/23/16 08:17 C-Reactive Protein 74 mg/L (Less than 5) H 11/23/16 08:17 Enterobacteriac sp PCR DETECTED (Not Detect) A 11/22/16 00:20 Consult Discharge Plan - Plan Referrals: Radha Pike MD [Non-Partnered Physician] -
--- NOTE | 2016-11-24 16:09 | Internal Med Progress Note ---
Date of Encounter: 11/24/16 Time of Encounter: 16:05 - Assessment and plan (1) Thrombosis of right lower extremity Current Visit: Yes Status: Acute Assessment and plan: most likely 2/2 IVDU with bacteremia, not septic at this time. continue heparin drip for now will switch to oral AC once ready for dc. (2) Bacteremia due to Enterobacter species Current Visit: Yes Status: Acute Assessment and plan: source possible IVDA vs the rt. foot wound. blood cx growing enterobacter species. will continue zosyn no fever, no leucocytosis. f/u repeat blood cx follow final cx sensitivity result ECHO with no vegetations will most likely need 2 weeks of IV antibiotics(starting from the day of the negative blood cx) patinet is high risk given bacteremia and need for residential IV antibiotics. (3) Foot ulcer, left Current Visit: Yes Status: Acute Assessment and plan: management as per podiatry Qualifiers: Non-pressure ulcer stage: limited to breakdown of skin Qualified Code(s): L97.521 - Non-pressure chronic ulcer of other part of left foot limited to breakdown of skin (4) Cellulitis Current Visit: Yes Status: Acute Assessment and plan: CT rt. leg shows cellulitis medial aspect of the thigh. no abscess, no surgical intervention needed at this time minimal redness and swelling at this time. will continue zosyn for now. Qualifiers: Site of cellulitis: extremity Site of cellulitis of extremity: lower extremity Laterality: left Qualified Code(s): L03.116 - Cellulitis of left lower limb - Subjective Interval history: patiashli seen at the bedside,lying in bed in no acute distress, c/o some pain on the right medial thigh. no fever, rt. foot wound being followed by podiatry. denies chest pain or sob. admits to shooting IV drugs recently. - Constitutional Vitals: Temp Pulse Resp BP Pulse Ox 98.2 F 55 16 114/72 98 11/24/16 14:57 11/24/16 14:57 11/24/16 14:57 11/24/16 14:57 11/24/16 14:57 General appearance: Present: cooperative, A&O X 3, no acute distress, answers questions appropriately Exam: - Head Head exam: Present: atraumatic, normocephalic - Eye Eye exam: Present: normal appearance, conjuntiva pink, sclera anicteric - Respiratory Respiratory exam: Present: CTAB. Absent: accessory muscle use, rales, rhonchi, wheezes - Cardiovascular Cardiovascular exam: Present: bradycardia (asymptomatic and reports of chronically having slow HR), +S1, +S2 - GI/Abdominal GI/Abdominal exam: Present: normal bowel sounds, soft, no peritoneal signs. Absent: distended, tenderness - Extremities Exam Extremities exam: Present: warm, radial pulses palpable and symetrical. mild redness on the medical aspect of the right thigh. Absent: calf tenderness, pedal edema (round 6cm x 6cm ulceration noted at the left metatarsal head ) - Neurological Exam Neurological exam: Present: alert, oriented X3 - Psychiatric Psychiatric exam: Present: normal affect, normal mood Internal Medicine: Result - Labs CBC & Chem 7: 11/23/16 12:41 11/23/16 08:17 - ABG Interpretation ABG results: PT/INR, D-dimer PT 14.3 Seconds (9.4-12.1) H 11/23/16 12:41 Consult Discharge Plan - Plan Referrals: Radha Pike MD [Non-Partnered Physician] -
--- NOTE | 2016-11-24 17:11 | Venous Imaging Report ---
LE Venous Duplex Patient Name:Rojas Santos Order Number:[id number] Procedure Date:11/23/2016 Date:1975Age:40 yrs Gender:Male Location:[facility] Room #: 3B44 Information Resource Consultant:Rafat Boone RN Referring MD:Eliana Hussein MD mental health consultant:None Reading MD:Javier Chavez MD Primary Indications:Pain in limb Secondary Indications: Risk Factors Yes/No Smoking Current Yes Anticoagulants No Previous Vascular Surgery No Hx of DVT No Hx of Chemotherapy No Trauma to Veins No Recent Surgery No Hx of Superficial Phlebitis No [place] Filter No Impressions: Bilateral lower extremity: normal deep exam. Lower extremity abnormal superficial exam: right great saphenousvein demonstrates acute thrombosis. Recommendations: Test completed on 11/23/2016 at 11:30:00 am. Findings Venous Duplex Results: Right: Venous imaging of the lower extremity reveals full patency and normal vessel compressibility of the right distal iliac, right common femoral, right superficial femoral, right popliteal, right posterior tibial, right peroneal and right lesser saphenous. Doppler signals in the evaluated veins were normal. There is an acute thrombus seen in the right great saphenous. It demonstrates an incompressible vein. Flow was absent and it did not augment. There is an acute thrombus seen in the right great saphenous above knee. It demonstrates an incompressible vein. Flow was absent and it did not augment. There is an acute thrombus seen in the right great saphenous below knee. It demonstrates an incompressible vein. Flow was phasic and it did not augment. Left: Venous imaging of the lower extremity reveals full patency and normal vessel compressibility of the left distal iliac, left common femoral, left superficial femoral, left popliteal, left posterior tibial, left peroneal, left great saphenous and left lesser saphenous. Doppler signals in the evaluated veins were normal. Prior Study: No prior study available for comparison. Lower Extremity Venous Duplex Side Vein Compress Spontaneous Flow Augment Diameter (cm) Depth (cm) Right Distal Iliac Normal Yes Phasic Yes Right Common Femoral Normal Yes Phasic Yes Right Superficial Femoral Normal Yes Phasic Yes Right Popliteal Normal Yes Phasic Yes Right Posterior Tibial Normal Yes Phasic Yes Right Peroneal Normal Yes Phasic Yes Right Great Saphenous None no Absent no Right Great Saphenous [place] None no Absent no Right Great Saphenous BK None no Phasic no Right Lesser Saphenous Normal Yes Phasic Yes Left Distal Iliac Normal Yes Phasic Yes Left Common Femoral Normal Yes Phasic Yes Left Superficial Femoral Normal Yes Phasic Yes Left Popliteal Normal Yes Phasic Yes Left Posterior Tibial Normal Yes Phasic Yes Left Peroneal Normal Yes Phasic Yes Left Great Saphenous Normal Yes Phasic Yes Left Lesser Saphenous Normal Yes Phasic Yes Updated by Javier Chavez MD on 11/24/2016 5:04:43 PM electronically signed on 11/24/2016 5:04:53 PM with status of Final
[2016-11-24] MEDS: rOPINIRole 0.25 MG TABLET PO SCH (20:42)
[2016-11-25] MEDS: *HR* HYDROmorphone (PF) 1 MG/ML SYRINGE IVP PRN ×12 (01:04→23:26)
[2016-11-25 01:06] LABS: Basophils % 0.5 %; Eosinophils # 0.4 K/mcL (0.0-0.6); Eosinophils % 5.4 %; Hematocrit 29.1 % (37.5-50.1); Hemoglobin 10.1 g/dL (12.9-16.9); Immature Granulocytes % 0.2 % (0-4); Lymphocytes # 2.3 K/mcL (0.6-4.6); Lymphocytes % 34.1 %; Mean Corpuscular HGB Conc 34.7 g/dL (31.6-35.5); Mean Corpuscular Hemoglobin 29.5 pg (28.0-33.3); Mean Corpuscular Volume 85.1 fL (83.0-100.0); Mean Platelet Volume 9.6 fL (9.4-12.4); Monocytes # 0.7 K/mcL (0.0-1.3); Monocytes % 11.1 %; Neutrophils # 3.3 K/mcL (1.6-8.9); Platelet Count 145 K/mcL (140-400); Red Blood Count 3.42 M/mcL (4.19-5.50); Segmented Neutrophils % 48.7 %
[2016-11-25 01:20] LABS: BUN/Creatinine Ratio 7 (6-26); Blood Urea Nitrogen 6 mg/dL (8-26); Calcium 8.2 mg/dL (8.6-10.8); Carbon Dioxide 29 mEq/L (19-29); Chloride 103 mEq/L (98-109); Glucose 105 mg/dL (70-99); Osmolality,Calculated 286 (280-300); Potassium 2.6 mEq/L (3.5-4.5); Sodium 139 mEq/L (136-145); eGFR For African Americans > 60 (> 60); eGFR For Non-African Americans > 60 (> 60)
[2016-11-25] MEDS: *HR* Heparin 5,000 UNIT/ML VIAL IVP PRN (03:24)
[2016-11-25] MEDS: Heparin 25,000 UNIT/500 ML D5W 25,000 UNIT/500 ML MLS IVC SCH ×2 (06:04→21:29)
[2016-11-25] MEDS: Gabapentin 400 MG CAPSULE PO SCH ×3 (08:06→21:29)
[2016-11-25] MEDS: Nicotine 21 MG PATCH.TD24 TD SCH (08:06)
[2016-11-25] MEDS: Piperacillin/Tazobactam 3.375 GM in D5% in Water (Mini-Bag+) 100 ML IVPB SCH ×2 (08:07→16:20)
[2016-11-25] MEDS: Potassium Chloride 40 MEQ, Lidocaine 1% 2 ML in D5% in Water 500 ML IVPB SCH ×2 (09:11→14:14)
--- NOTE | 2016-11-25 16:40 | Internal Med Progress Note ---
Date of Encounter: 11/25/16 Time of Encounter: 16:38 - Assessment and plan (1) Thrombosis of right lower extremity Current Visit: Yes Status: Acute Assessment and plan: most likely 2/2 IVDU with bacteremia, not septic at this time. continue heparin drip for now will switch to oral AC once ready for dc. (2) Bacteremia due to Enterobacter species Current Visit: Yes Status: Acute Assessment and plan: source possible IVDA vs the rt. foot wound. blood cx growing enterobacter species. cx results siddiqi sensitive.will dc zosyn and start ceftriaxone no fever, no leucocytosis. repeat blood cx is negative ECHO with no vegetations will most likely need 2 weeks of IV antibiotics(starting from the day of the negative blood cx) patinet is high risk given bacteremia and need for mcc IV antibiotics. (3) Foot ulcer, left Current Visit: Yes Status: Acute Assessment and plan: management as per podiatry Qualifiers: Non-pressure ulcer stage: limited to breakdown of skin Qualified Code(s): L97.521 - Non-pressure chronic ulcer of other part of left foot limited to breakdown of skin (4) Cellulitis Current Visit: Yes Status: Acute Assessment and plan: CT rt. leg shows cellulitis medial aspect of the thigh. no abscess, no surgical intervention needed at this time minimal redness and swelling at this time. will continue ceftriaxone Qualifiers: Site of cellulitis: extremity Site of cellulitis of extremity: lower extremity Laterality: left Qualified Code(s): L03.116 - Cellulitis of left lower limb - Subjective Interval history: patinet seen at the bedside,lying in bed in no acute distress, c/o some pain on the right medial thigh. no fever, left foot wound being followed by podiatry. being tretaed for bacteremia and rt leg thrombus denies chest pain or sob. admits to shooting IV drugs recently. - Constitutional Vitals: Temp Pulse Resp BP Pulse Ox 98.4 F 62 18 129/85 99 11/25/16 16:03 11/25/16 16:03 11/25/16 16:03 11/25/16 16:03 11/25/16 16:03 General appearance: Present: cooperative, A&O X 3, no acute distress, answers questions appropriately Exam: - Head Head exam: Present: atraumatic, normocephalic - Eye Eye exam: Present: normal appearance, conjuntiva pink, sclera anicteric - Respiratory Respiratory exam: Present: CTAB. Absent: accessory muscle use, rales, rhonchi, wheezes - Cardiovascular Cardiovascular exam: Present: +S1, +S2 - GI/Abdominal GI/Abdominal exam: Present: normal bowel sounds, soft, no peritoneal signs. Absent: distended, tenderness - Extremities Exam Extremities exam: Present: warm, radial pulses palpable and symetrical. mild redness on the medical aspect of the right thigh. Absent: calf tenderness, pedal edema (round 6cm x 6cm ulceration noted at the left metatarsal head ) - Neurological Exam Neurological exam: Present: alert, oriented X3 - Psychiatric Psychiatric exam: Present: normal affect, normal mood Internal Medicine: Result - Labs CBC & Chem 7: 11/25/16 00:55 11/25/16 00:55 Labs: Short CBC 11/25/16 Range/Units 00:55 WBC 6.7 (4.3-11.1) K/mcL Hgb 10.1 L (12.9-16.9) g/dL Hct 29.1 L (37.5-50.1) % Plt Count 145 (140-400) K/mcL Neutrophils # 3.3 (1.6-8.9) K/mcL BMP 11/25/16 00:55 Sodium 139 Potassium 2.6 L Chloride 103 Carbon Dioxide 29 BUN 6 L Creatinine 0.84 Glucose 105 H Calcium 8.2 L - ABG Interpretation ABG results: PT/INR, D-dimer PT 14.3 Seconds (9.4-12.1) H 11/23/16 12:41 Consult Discharge Plan - Plan Referrals: Radha Pike MD [Non-Partnered Physician] -
[2016-11-25] MEDS: rOPINIRole 0.25 MG TABLET PO SCH (21:29)
[2016-11-26] MEDS: *HR* HYDROmorphone (PF) 1 MG/ML SYRINGE IVP PRN ×4 (06:27→19:36)
[2016-11-26] MEDS: Gabapentin 400 MG CAPSULE PO SCH ×3 (08:31→21:14)
[2016-11-26] MEDS: Nicotine 21 MG PATCH.TD24 TD SCH (08:31)
--- NOTE | 2016-11-26 12:08 | Podiatry Progress Note ---
Date of Encounter: 11/26/16 Time of Encounter: 11:30 - Assessment and Plan (1) Cellulitis Current Visit: Yes Status: Acute his cellulitis of the left foot is almost completely resolved. antibiotics he gets for his bacteremia will be sufficient for his left foot. management of antibiotics per internal med and/or ID if onboard. for his left foot needs to wear surgical shoe when ambulating. silvadene and adaptic over eschar, followed by 4x4 gauze and yamileth changed every other day upon discharge. needs to have f/ u scheduled in wound care center a week after discharge. from a podiatric standpoint his left foot is stable for discharge. Qualifiers: Site of cellulitis: extremity Site of cellulitis of extremity: lower extremity Laterality: left Qualified Code(s): L03.116 - Cellulitis of left lower limb Subjective Principal diagnosis: cellulitis left foot Interval history: patient admitted with left foot cellulitis. he has been receiving IV antibiotics. he was also subsequently found to have VTEs in his right lower extremity. he says the redness has gone down in the left foot. he says the area where the blister is looks dark. he does report pain in this area as well. Objective - Vital Signs Vital Signs: Vital Signs Temp Pulse Resp BP Pulse Ox 11/26/16 11:11 98.2 F 60 15 118/75 98 11/26/16 07:15 98.2 F 58 15 127/80 97 11/25/16 22:56 98.4 F 58 15 125/79 97 11/25/16 19:29 98.2 F 65 15 114/73 98 11/25/16 16:03 98.4 F 62 18 129/85 99 Intake and Output 11/25/16 11/26/16 11/26/16 23:59 07:59 15:59 Intake Total 1088 / 1088 150 / 150 360 / 360 Output Total 1700 / 1700 300 / 300 Balance -612 / -612 150 / 150 60 / 60 Intake: IV Fluids 548 / 548 150 / 150 Heparin 25,000 UNIT/500 348 / 348 150 / 150 ML D5W 25,000 unit In 500 ml @ 14 UNIT/KG/HR 18. 924 mls/hr IVC .Q24H Y[facility] Rx#:[id number] Zosyn 3.375 GM In 100 / 100 Dextrose 5% (Minibag+) 100 ML 100 ML @ 25 mls/hr IVPB Q8HR [facility] Rx#: [id number] Rocephin 2,000 MG In 100 / 100 Dextrose 5% (Minibag+) 100 ML 100 ML @ 200 mls/ hr IVPB Q24H [facility] Rx#: [id number] Oral 540 / 540 360 / 360 Output: Urine 1700 / 1700 300 / 300 Other: Meal Dinner Breakfast Percent of Meal Consumed 30% 75% Weight 68.039 kg Patient Weight 11/26/16 23:59 Weight 68.039 kg - Exam Exam: well developed and nourished male in no acute distress CFT < 3 sec x 5 digits left foot. left foot is warm to touch. minimal edema. dry non-fluctuant eschar medial aspect of the 1st MTP joint, almost resolved erythema. mild pain with palpation over eschar. no pain with motion of the 1st MTP joint. no chet pain on the left with squeeze. sensation intact to light touch left foot. - Lab Result Diagrams: 11/25/16 00:55 11/25/16 00:55 Labs: Abnormal lab results RBC 3.42 M/mcL (4.19-5.50) L 11/25/16 00:55 Hgb 10.1 g/dL (12.9-16.9) L 11/25/16 00:55 Hct 29.1 % (37.5-50.1) L 11/25/16 00:55 ESR 97 mm/hr (0-10) H 11/23/16 08:17 PT 14.3 Seconds (9.4-12.1) H 11/23/16 12:41 APTT 74.4 Seconds (26.0-36.0) H 11/26/16 06:20 Potassium 2.6 mEq/L (3.5-4.5) L 11/25/16 00:55 BUN 6 mg/dL (8-26) L 11/25/16 00:55 Glucose 105 mg/dL (70-99) H 11/25/16 00:55 Calcium 8.2 mg/dL (8.6-10.8) L 11/25/16 00:55 Magnesium 1.2 mg/dL (1.6-2.6) L 11/23/16 08:17 C-Reactive Protein 74 mg/L (Less than 5) H 11/23/16 08:17 Enterobacteriac sp PCR DETECTED (Not Detect) A 11/22/16 00:20 Consult Discharge Plan - Plan Referrals: Radha Pike MD [Non-Partnered Physician] - Prescriptions: Rivaroxaban [Xarelto] 15 mg PO BID 21 Days
[2016-11-26] MEDS: Heparin 25,000 UNIT/500 ML D5W 25,000 UNIT/500 ML MLS IVC SCH (14:24)
--- NOTE | 2016-11-26 16:44 | Internal Med Progress Note ---
Date of Encounter: 11/26/16 Time of Encounter: 16:33 - Assessment and plan (1) Thrombosis of right lower extremity Current Visit: Yes Status: Acute Assessment and plan: most likely 2/2 IVDU with bacteremia, not septic at this time. will switch to xarelto today, stop the heparin drip. (2) Bacteremia due to Enterobacter species Current Visit: Yes Status: Acute Assessment and plan: source possible IVDA vs the rt. foot wound. blood cx growing enterobacter species. cx results siddiqi sensitive.will dc zosyn and start ceftriaxone no fever, no leucocytosis. repeat blood cx is negative ECHO with no vegetations will most likely need 2 weeks of IV antibiotics(starting from the day of the negative blood cx) patinet is high risk given bacteremia and need for [facility] IV antibiotics. await social work to arrange for placement for IV antibiotics (3) Foot ulcer, left Current Visit: Yes Status: Acute Assessment and plan: management as per podiatry Qualifiers: Non-pressure ulcer stage: limited to breakdown of skin Qualified Code(s): L97.521 - Non-pressure chronic ulcer of other part of left foot limited to breakdown of skin (4) Cellulitis Current Visit: Yes Status: Acute Assessment and plan: CT rt. leg shows cellulitis medial aspect of the thigh. no abscess, no surgical intervention needed at this time minimal redness and swelling at this time. will continue ceftriaxone Qualifiers: Site of cellulitis: extremity Site of cellulitis of extremity: lower extremity Laterality: left Qualified Code(s): L03.116 - Cellulitis of left lower limb - Subjective Interval history: patinet seen at the bedside,lying in bed in no acute distress, c/o some pain on the right medial thigh. no fever, left foot wound being followed by podiatry and is resolved as per podiatry being tretaed for bacteremia and rt leg thrombus denies chest pain or sob. admits to shooting IV drugs recently. - Constitutional Vitals: Temp Pulse Resp BP Pulse Ox 98 F 61 15 137/83 99 11/26/16 15:55 11/26/16 15:55 11/26/16 15:55 11/26/16 15:55 11/26/16 15:55 General appearance: Present: cooperative, A&O X 3, no acute distress, answers questions appropriately Exam: neck- supple chest- b/l clear, no added sounds CVS-s1 and s2, no mr//g abd-soft, non tender, bs are present ext- no edema neuro- no focal defecits, Internal Medicine: Result - Labs CBC & Chem 7: 11/25/16 00:55 11/25/16 00:55 - ABG Interpretation ABG results: PT/INR, D-dimer PT 14.3 Seconds (9.4-12.1) H 11/23/16 12:41 Consult Discharge Plan - Plan Referrals: Radha Pike MD [Non-Partnered Physician] - Prescriptions: Rivaroxaban [Xarelto] 15 mg PO BID 21 Days
[2016-11-26] MEDS: *HR* OxyCODONE/APAP 5/325 TABLET PO SCH ×3 (17:36→21:14)
[2016-11-26 17:39] LABS: Basophils % 0.7 %; Eosinophils # 0.3 K/mcL (0.0-0.6); Eosinophils % 4.7 %; Hematocrit 30.5 % (37.5-50.1); Hemoglobin 10.8 g/dL (12.9-16.9); Immature Granulocytes % 3.3 % (0-4); Lymphocytes # 2.4 K/mcL (0.6-4.6); Lymphocytes % 43.9 %; Mean Corpuscular HGB Conc 35.4 g/dL (31.6-35.5); Mean Corpuscular Hemoglobin 29.8 pg (28.0-33.3); Monocytes # 0.6 K/mcL (0.0-1.3); Monocytes % 9.9 %; Neutrophils # 2.1 K/mcL (1.6-8.9); Platelet Count 168 K/mcL (140-400); Red Blood Count 3.63 M/mcL (4.19-5.50); Red Cell Distribution Width 12.8 % (11.5-14.5); Segmented Neutrophils % 37.5 %
[2016-11-26 17:51] LABS: BUN/Creatinine Ratio 10 (6-26); Blood Urea Nitrogen 7 mg/dL (8-26); Calcium 8.2 mg/dL (8.6-10.8); Carbon Dioxide 24 mEq/L (19-29); Chloride 106 mEq/L (98-109); Glucose 105 mg/dL (70-99); Osmolality,Calculated 288 (280-300); Potassium 3.4 mEq/L (3.5-4.5); Sodium 140 mEq/L (136-145); eGFR For African Americans > 60 (> 60); eGFR For Non-African Americans > 60 (> 60)
[2016-11-26] MEDS: rOPINIRole 0.25 MG TABLET PO SCH (21:13)
[2016-11-27] MEDS: Ibuprofen 400 MG TABLET PO PRN (00:16)
[2016-11-27] MEDS: *HR* OxyCODONE/APAP 5/325 TABLET PO SCH ×6 (00:17→20:02)
[2016-11-27] MEDS: *HR* HYDROmorphone (PF) 1 MG/ML SYRINGE IVP PRN ×4 (01:38→23:32)
[2016-11-27] MEDS: Heparin 25,000 UNIT/500 ML D5W 25,000 UNIT/500 ML MLS IVC SCH (06:14)
[2016-11-27] MEDS: Nicotine 21 MG PATCH.TD24 TD SCH (08:34)
[2016-11-27] MEDS: Gabapentin 400 MG CAPSULE PO SCH ×3 (08:34→20:02)
[2016-11-27] MEDS: Silver Sulfadiazine 50 GM TUBE TP SCH (08:48)
--- NOTE | 2016-11-27 10:25 | Discharge Summary ---
Date of Encounter: 11/27/16 Time of Encounter: 10:23 - Discharge Diagnosis (1) Thrombosis of right lower extremity Priority: Primary Status: Acute (2) Bacteremia due to Enterobacter species Priority: Primary Status: Acute (3) Foot ulcer, left Priority: Primary Status: Acute Qualifiers: Non-pressure ulcer stage: limited to breakdown of skin Qualified Code(s): L97.521 - Non-pressure chronic ulcer of other part of left foot limited to breakdown of skin (4) Cellulitis Priority: Primary Status: Acute Qualifiers: Site of cellulitis: extremity Site of cellulitis of extremity: lower extremity Laterality: left Qualified Code(s): L03.116 - Cellulitis of left lower limb - Discharge Medications Prescriptions: cefTRIAXone [Rocephin] 2,000 mg IVPB DAILY 10 Days HYDROcodone/Acet 7.5/325 mg [[place] 7.5-325 mg] 1 tab PO Q6H PRN #30 tablet PRN Reason: Pain Rivaroxaban [Xarelto] 15 mg PO BID 21 Days Home Medications: Bismuth Subsalicylate [PEPTO-BISMOL (262mg/15mL) Susp] 20 ml PO 8XD PRN [History] Albuterol Sulfate [Ventolin Hfa] 2 puff IH Q4H PRN 11/22/16 [History] Buprenorphine HCl/Naloxone HCl [Buprenorphin-Naloxon 8-2 mg Sl] 1 tab SL BID [History] Gabapentin [Neurontin] 800 mg PO TID 11/22/16 [History] Ibuprofen [Motrin] 800 mg PO Q8HR PRN 11/22/16 [History] Lansoprazole [Prevacid] 30 mg PO DAILY 11/22/16 [History] Ondansetron HCl [Zofran] 4 mg PO BID PRN 11/22/16 [History] Ropinirole HCl [Requip] 0.5 mg PO HS 11/22/16 [History] Triamcinolone Acet 0.1% CRM [Kenalog] 1 appl TP BID PRN 11/22/16 [History] Rivaroxaban [Xarelto] 15 mg PO BID 21 Days 11/26/16 [Rx] HYDROcodone/Acet 7.5/325 mg [[place] 7.5-325 mg] 1 tab PO Q6H PRN #30 tablet 11/27 [Rx] cefTRIAXone [Rocephin] 2,000 mg IVPB DAILY 10 Days 11/27/16 [Rx] Allergies/Adverse Reactions: Allergies acetaminophen [From Vicodin] Adverse Reaction (Verified 11/21/16 21:52) Vomiting hydrocodone [From Vicodin] Adverse Reaction (Verified 11/21/16 21:52) Vomiting Date of admission: 11/24/16 18:00 Primary care physician: PCP NO Discharging clinician: Estefany Titus Anticipated date of discharge: 11/27/16 - Patient Status Disposition: Transfer Inpatient Rehab Fac Condition: Good Functional capacity at discharge: independent ambulation Overall status at discharge: patient is progressing back to baseline - Discharge Instructions Follow Up With: Radha Pike MD [Non-Partnered Physician] - 12/07/16 8:40 am - Diet and Activity Activity: as per physical therapy Diet: advance to your usual diet Interval History: Mr. Santos is a 40 year old male with PMH of dysphagia, drug abuse, tobacco abuse who presents to ER for evaluation of worsening left foot ulcer and pain. Patient states it initially started off as a blister about 10 days ago and gradually has progressed to it's current status. Denies any trauma. Believes it was his shoes that gave him the initial blister and does not recall any trauma after. No chest pain, sob, abd pain, fever, or chills. CT of negative for osteomyelitis. Patient is not diabetic-A1c 5.0%.Patient with remote history of IV drug abuse, patient stating he has been clean for 1 year. He is endorsing compliance with Suboxone. [place] report checks out for Suboxone and gabapentin. he admitted that he has been shooting up a family members' Opana for approximately a year. He states that he last shot up approximately 2 weeks ago. given severe pain in his right medial thigh, a rt. leg US showed a thrombus. his blood cx is also positive for enterobacter species. given h/o IV drug shooting and a thrombus, he was started on heparin drip and IV antibiotics he remained hemodynamically stable. ECHO showed no valvular vegetations. repeat blood cx is negative,he will be dc to a facility with IV antibiotics to complete 2 weeks of tretament after the negative blood cx date. he will f.u with his PCP after dc along with podiatry who has been following his left foot wound. Hospital course: Mr. Santos is a 41 year old male - Time Spent with Patient Total time spent providing and/or coordinating discharge services: - Constitutional Vitals: Temp Pulse Resp BP Pulse Ox 97.7 F 59 15 129/87 98 11/27/16 07:29 11/27/16 07:29 11/27/16 07:29 11/27/16 07:29 11/27/16 07:29 General appearance: Present: cooperative, A&O X 3, no acute distress, answers questions appropriately Exam: neck- supple chest- b/l clear, no added sounds CVS-s1 and s2, no mr//g abd-soft, non tender, bs are present ext- no edema neuro- no focal defecits,
--- NOTE | 2016-11-27 10:27 | Physician Discharge Referral ---
ExtendedCare Referral Info Transfer To: f Provider in Charge: jos thomson Institutional Level of Care: Intermediate - Diagnosis (1) Thrombosis of right lower extremity Status: Acute (2) Bacteremia due to Enterobacter species Status: Acute (3) Foot ulcer, left Status: Acute (4) Cellulitis Status: Acute - Transfer Medications Prescriptions: OxyCODONE/APAP 5/325 [Percocet 5/325 MG] 1 each PO Q4HR #30 tablet cefTRIAXone [Rocephin] 2,000 mg IVPB DAILY 10 Days Rivaroxaban [Xarelto] 15 mg PO BID 21 Days Home Medications: Bismuth Subsalicylate [PEPTO-BISMOL (262mg/15mL) Susp] 20 ml PO 8XD PRN [History] Albuterol Sulfate [Ventolin Hfa] 2 puff IH Q4H PRN 11/22/16 [History] Buprenorphine HCl/Naloxone HCl [Buprenorphin-Naloxon 8-2 mg Sl] 1 tab SL BID [History] Gabapentin [Neurontin] 800 mg PO TID 11/22/16 [History] Ibuprofen [Motrin] 800 mg PO Q8HR PRN 11/22/16 [History] Lansoprazole [Prevacid] 30 mg PO DAILY 11/22/16 [History] Ondansetron HCl [Zofran] 4 mg PO BID PRN 11/22/16 [History] Ropinirole HCl [Requip] 0.5 mg PO HS 11/22/16 [History] Triamcinolone Acet 0.1% CRM [Kenalog] 1 appl TP BID PRN 11/22/16 [History] Rivaroxaban [Xarelto] 15 mg PO BID 21 Days 11/26/16 [Rx] OxyCODONE/APAP 5/325 [Percocet 5/325 MG] 1 each PO Q4HR #30 tablet 11/27/16 [Rx] cefTRIAXone [Rocephin] 2,000 mg IVPB DAILY 10 Days 11/27/16 [Rx] Allergies/Adverse Reactions: Allergies acetaminophen [From Vicodin] Adverse Reaction (Verified 11/21/16 21:52) Vomiting hydrocodone [From Vicodin] Adverse Reaction (Verified 11/21/16 21:52) Vomiting - Respiratory Orders Smoking Cessation: Smoking cessation has been advised. For more information, call the [place] Tobacco Quit Line at 0-803-AYGU-NOW. - Advance Directives Code Status: Full Code - Mobility Orders Ambulate - Rehabiliation Orders Rehab Potential: Fair Rehab Orders: Evaluation for Physical Therapy, Evaluation for Occupational Therapy - Treatments List/Other: the line should be removed once IV antibiotics is finished. - Diet Orders Regular CERTIFICATION: I certify that the transfer of the above named patient to an Extended Care Facility is necessary for the continuing treatment of the diagnosis listed. The above information is true and accurate reflection of patient's current condition. Confidential - Redisclosure prohibited without a patient's written consent.
[2016-11-27] MEDS: *HR* Rivaroxaban 15 MG TABLET PO SCH ×2 (10:57→20:02)
[2016-11-27] MEDS: rOPINIRole 0.25 MG TABLET PO SCH (20:02)
[2016-11-28] MEDS: *HR* OxyCODONE/APAP 5/325 TABLET PO SCH ×7 (00:58→23:48)
[2016-11-28] MEDS: *HR* HYDROmorphone (PF) 1 MG/ML SYRINGE IVP PRN ×3 (05:52→18:07)
[2016-11-28] MEDS: *HR* Rivaroxaban 15 MG TABLET PO SCH ×2 (08:01→20:14)
[2016-11-28] MEDS: Nicotine 21 MG PATCH.TD24 TD SCH (08:02)
[2016-11-28] MEDS: Silver Sulfadiazine 50 GM TUBE TP SCH (08:02)
[2016-11-28] MEDS: Gabapentin 400 MG CAPSULE PO SCH ×3 (08:02→20:14)
--- NOTE | 2016-11-28 19:04 | Internal Med Progress Note ---
Date of Encounter: 11/28/16 Time of Encounter: 19:01 - Subjective Interval history: Mr. Rojas Maldonado is a 41-year-old male admitted for left foot ulcer and has been started on IV antibiotics. He has been complaining of a lot of pain in his left foot. I noted that today he has history of IV drug abuse and the hospitalist team has turned up transthoracic echocardiogram to rule out any vegetation. A CT scan was also done to rule out osteomyelitis. Blood cultures showed enterococcus sensitive to ampicillin. He is currently on IV Rocephin. At this time he is planned to be treated as a soft tissue infection and a hospitalist team plan is to treat him with IV antibiotics for 2 weeks duration and I am supposing with an added wound care follow-up. Right lower extremity ultrasound showed saphenous vein DVT and he is on Ribavarin. His potassium was noted 3.4 on November 26 therefore I will repeat one more level tomorrow. Blood sugars are noted in higher range but hemoglobin A1c is only 5. Since sugars are high therefore I will add low-dose Lantus regardless. Apparently he has some insurance issues which need to be taking care before he can be discharged otherwise her discharge summary has already been dictated. - Constitutional Vitals: Temp Pulse Resp BP Pulse Ox 99.3 F 73 16 151/95 98 11/28/16 19:01 11/28/16 19:01 11/28/16 19:01 11/28/16 19:01 11/28/16 19:01 General appearance: Present: cooperative, A&O X 3, no acute distress, answers questions appropriately Internal Medicine: Result - Labs CBC & Chem 7: 11/26/16 17:34 11/26/16 17:34 - ABG Interpretation ABG results: PT/INR, D-dimer PT 14.3 Seconds (9.4-12.1) H 11/23/16 12:41 Consult Discharge Plan - Plan Referrals: Radha Pike MD [Non-Partnered Physician] - 12/07/16 8:40 am Prescriptions: cefTRIAXone [Rocephin] 2,000 mg IVPB DAILY 10 Days HYDROcodone/Acet 7.5/325 mg [[place] 7.5-325 mg] 1 tab PO Q6H PRN #30 tablet PRN Reason: Pain Rivaroxaban [Xarelto] 15 mg PO BID 21 Days
[2016-11-28] MEDS: rOPINIRole 0.25 MG TABLET PO SCH (20:14)
[2016-11-28] MEDS: Insulin DETEMIR 100 UNIT/ML X5UNITS SQ SCH (20:15)
[2016-11-29] MEDS: *HR* HYDROmorphone (PF) 1 MG/ML SYRINGE IVP PRN ×4 (00:51→19:15)
[2016-11-29] MEDS: *HR* OxyCODONE/APAP 5/325 TABLET PO SCH ×3 (04:16→14:49)
[2016-11-29 04:50] LABS: Alanine Aminotransferase 45 Units/L (0-55); Albumin 2.6 g/dL (3.5-5.0); Alkaline Phosphatase 96 Units/L (38-126); Aspartate Amino Transferase 40 Units/L (5-34); BUN/Creatinine Ratio 10 (6-26); Bilirubin,Total 0.4 mg/dL (0.2-1.2); Blood Urea Nitrogen 7 mg/dL (8-26); Calcium 8.8 mg/dL (8.6-10.8); Carbon Dioxide 27 mEq/L (19-29); Chloride 107 mEq/L (98-109); Glucose 79 mg/dL (70-99); Osmolality,Calculated 285 (280-300); Potassium 3.3 mEq/L (3.5-4.5); Sodium 139 mEq/L (136-145); Total Protein 7.7 g/dL (6.0-8.3); eGFR For African Americans > 60 (> 60); eGFR For Non-African Americans > 60 (> 60)
[2016-11-29 04:51] LABS: Albumin/Globulin Ratio 0.5 (1.1-2.2); Globulin 5.1 g/dL (2.4-3.5)
[2016-11-29] MEDS: Nicotine 21 MG PATCH.TD24 TD SCH (09:36)
[2016-11-29] MEDS: *HR* Rivaroxaban 15 MG TABLET PO SCH ×2 (09:37→20:34)
[2016-11-29] MEDS: Gabapentin 400 MG CAPSULE PO SCH ×3 (09:37→20:34)
[2016-11-29] MEDS: Silver Sulfadiazine 50 GM TUBE TP SCH (10:29)
[2016-11-29] MEDS: Ibuprofen 400 MG TABLET PO PRN (11:23)
[2016-11-29] MEDS ORDERED: Potassium Chloride Elixir 20 MEQ/15 ML UDC PO ONE (14:03)
[2016-11-29] MEDS: *HR* OxyCODONE/APAP 5/325 TABLET PO PRN ×2 (15:40→20:35)
--- NOTE | 2016-11-29 18:38 | Internal Med Progress Note ---
Date of Encounter: 11/29/16 Time of Encounter: 18:36 - Assessment and plan (1) Foot ulcer, left Current Visit: Yes Status: Acute Qualifiers: Non-pressure ulcer stage: limited to breakdown of skin Qualified Code(s): L97.521 - Non-pressure chronic ulcer of other part of left foot limited to breakdown of skin (2) Hypokalemia Current Visit: Yes Status: Acute (3) DVT prophylaxis Current Visit: Yes Status: Acute (4) Thrombosis of right lower extremity Current Visit: Yes Status: Acute (5) Bacteremia due to Enterobacter species Current Visit: Yes Status: Acute - Subjective Interval history: Mr. Rojas Maldonado is a 41-year-old male admitted for left foot ulcer and has been started on IV antibiotics. He has been complaining of a lot of pain in his left foot. I noted that today he has history of IV drug abuse and the hospitalist team has turned up transthoracic echocardiogram to rule out any vegetation. A CT scan was also done to rule out osteomyelitis. Blood cultures showed enterococcus sensitive to ampicillin. He is currently on IV Rocephin. At this time he is planned to be treated as a soft tissue infection and a hospitalist team plan is to treat him with IV antibiotics for 2 weeks duration and I am supposing with an added wound care follow-up. Right lower extremity ultrasound showed saphenous vein DVT and he is on Ribavarin. His potassium was noted 3.4 on November 26 therefore I will repeat one more level tomorrow. Blood sugars are noted in higher range but hemoglobin A1c is only 5. Since sugars are high therefore I will add low-dose Lantus regardless. Apparently he has some insurance issues which need to be taking care before he can be discharged otherwise her discharge summary has already been dictated. 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 Patient does not want to wait that long and hospital and threatening to leave AMA. His potassium was low which is supplemented. No new complaints he seems quite comfortable. He is on IV Rocephin and Percocet./ - Constitutional Vitals: Temp Pulse Resp BP Pulse Ox 98.1 F 79 18 120/84 97 11/29/16 15:11 11/29/16 15:11 11/29/16 15:11 11/29/16 15:11 11/29/16 15:11 General appearance: Present: cooperative, A&O X 3, no acute distress, answers questions appropriately - Head Head exam: Present: atraumatic, normocephalic - Eye Eye exam: Present: PERRL, conjuntiva pink, sclera anicteric Pupils: Present: PERRL - Neck Neck exam general surgery: Present: supple, trachea midline. Absent: lymphadenopathy - Respiratory Respiratory exam: Present: CTAB. Absent: accessory muscle use, rales, rhonchi, wheezes - Cardiovascular Cardiovascular exam: Present: RRR, +S1, +S2. Absent: diastolic murmur, gallop, rubs, systolic murmur - GI/Abdominal GI/Abdominal exam: Present: normal bowel sounds, soft, no peritoneal signs. Absent: distended, tenderness - Extremities Exam Extremities exam: Present: warm, radial pulses palpable and symetrical. Absent : calf tenderness, cyanotic, pedal edema - Neurological Exam Neurological exam: Present: CN II-XII intact, oriented X3, no focal deficits. Absent: pronater drift, facial droop, speech deficit - Skin Skin exam: Present: dry, intact Internal Medicine: Result - Labs CBC & Chem 7: 11/26/16 17:34 11/29/16 04:15 Labs: BMP 11/29/16 04:15 Sodium 139 Potassium 3.3 L Chloride 107 Carbon Dioxide 27 BUN 7 L Creatinine 0.71 L Glucose 79 Calcium 8.8 Liver Function 11/29/16 Range/Units 04:15 Total Bilirubin 0.4 (0.2-1.2) mg/dL AST 40 H (5-34) Units/L ALT 45 (0-55) Units/L Alkaline Phosphatase 96 (38-126) Units/L Albumin 2.6 L (3.5-5.0) g/dL - ABG Interpretation ABG results: PT/INR, D-dimer PT 14.3 Seconds (9.4-12.1) H 11/23/16 12:41 Consult Discharge Plan - Plan Referrals: Radha Pike MD [Non-Partnered Physician] - 12/07/16 8:40 am Prescriptions: cefTRIAXone [Rocephin] 2,000 mg IVPB DAILY 10 Days HYDROcodone/Acet 7.5/325 mg [[place] 7.5-325 mg] 1 tab PO Q6H PRN #30 tablet PRN Reason: Pain Rivaroxaban [Xarelto] 15 mg PO BID 21 Days
[2016-11-29] MEDS: rOPINIRole 0.25 MG TABLET PO SCH (20:34)
[2016-11-29] MEDS: Insulin DETEMIR 100 UNIT/ML X5UNITS SQ SCH (20:40)
[2016-11-30] MEDS: *HR* OxyCODONE/APAP 5/325 TABLET PO PRN ×2 (00:27→04:45)
[2016-11-30] MEDS: *HR* HYDROmorphone (PF) 1 MG/ML SYRINGE IVP PRN ×2 (01:23→07:47)
[2016-11-30 05:41] LABS: Alanine Aminotransferase 46 Units/L (0-55); Albumin 2.6 g/dL (3.5-5.0); Albumin/Globulin Ratio 0.5 (1.1-2.2); Alkaline Phosphatase 93 Units/L (38-126); Aspartate Amino Transferase 40 Units/L (5-34); BUN/Creatinine Ratio 13 (6-26); Bilirubin,Total 0.2 mg/dL (0.2-1.2); Blood Urea Nitrogen 9 mg/dL (8-26); Calcium 8.6 mg/dL (8.6-10.8); Carbon Dioxide 26 mEq/L (19-29); Chloride 108 mEq/L (98-109); Glucose 89 mg/dL (70-99); Osmolality,Calculated 290 (280-300); Potassium 3.5 mEq/L (3.5-4.5); Sodium 141 mEq/L (136-145); Total Protein 7.6 g/dL (6.0-8.3); eGFR For African Americans > 60 (> 60); eGFR For Non-African Americans > 60 (> 60)
[2016-11-30] MEDS: Nicotine 21 MG PATCH.TD24 TD SCH (07:47)
[2016-11-30] MEDS: Gabapentin 400 MG CAPSULE PO SCH ×2 (07:47→13:54)
[2016-11-30] MEDS: *HR* Rivaroxaban 15 MG TABLET PO SCH (07:47)
[2016-11-30] MEDS ORDERED: *HR* OxyCODONE/APAP 10/325 TABLET PO PRN (10:13)
--- NOTE | 2016-11-30 10:21 | Discharge Summary ---
Date of Encounter: 12/01/16 Time of Encounter: 10:15 - Discharge Diagnosis (1) Foot ulcer, left Priority: Primary Status: Acute Qualifiers: Non-pressure ulcer stage: limited to breakdown of skin Qualified Code(s): L97.521 - Non-pressure chronic ulcer of other part of left foot limited to breakdown of skin (2) Hypokalemia Priority: Secondary Status: Resolved (3) Thrombosis of right lower extremity Priority: Primary Status: Acute (4) Bacteremia due to Enterobacter species Priority: Primary Status: Acute - Discharge Medications Prescriptions: Cefuroxime PO [Ceftin] 500 mg PO Q12HR #20 tablet HYDROcodone/Acet 7.5/325 mg [[place] 7.5-325 mg] 1 tab PO Q6H PRN #30 tablet PRN Reason: Pain Rivaroxaban [Xarelto] 15 mg PO BID 21 Days Silver Sulfadiazine [Silvadene] 1 appl TP DAILY #1 tube Home Medications: Bismuth Subsalicylate [PEPTO-BISMOL (262mg/15mL) Susp] 20 ml PO 8XD PRN [History] Albuterol Sulfate [Ventolin Hfa] 2 puff IH Q4H PRN 11/22/16 [History] Buprenorphine HCl/Naloxone HCl [Buprenorphin-Naloxon 8-2 mg Sl] 1 tab SL BID [History] Gabapentin [Neurontin] 800 mg PO TID 11/22/16 [History] Lansoprazole [Prevacid] 30 mg PO DAILY 11/22/16 [History] Ondansetron HCl [Zofran] 4 mg PO BID PRN 11/22/16 [History] Ropinirole HCl [Requip] 0.5 mg PO HS 11/22/16 [History] Triamcinolone Acet 0.1% CRM [Kenalog] 1 appl TP BID PRN 11/22/16 [History] Rivaroxaban [Xarelto] 15 mg PO BID 21 Days 11/26/16 [Rx] HYDROcodone/Acet 7.5/325 mg [[place] 7.5-325 mg] 1 tab PO Q6H PRN #30 tablet 11/27 [Rx] Nicotine Patch [Nicoderm] 21 mg TD DAILY patch.td24 11/30/16 [Rx] Silver Sulfadiazine [Silvadene] 1 appl TP DAILY #1 tube 11/30/16 [Rx] Cefuroxime PO [Ceftin] 500 mg PO Q12HR #20 tablet 12/01/16 [Rx] Allergies/Adverse Reactions: Allergies acetaminophen [From Vicodin] Adverse Reaction (Verified 11/21/16 21:52) Vomiting hydrocodone [From Vicodin] Adverse Reaction (Verified 11/21/16 21:52) Vomiting Date of admission: 11/24/16 18:00 Primary care physician: PCP NO Consults: 11/27/16 11:53 Consult to Occupational Therapy [CONS] Stat Comment: Evaluate, develop and implement POC Reason for Consult: evalute Consult to Physical Therapy [CONS] Stat Comment: Evaluate, develop and implement POC Reason for Consult: eval 11/30/16 09:11 Consult to Infectious Diseases [CONS] Routine Consulting Provider: Infectious Disease Annmarie Reason for Consult: Antibiotic therapy Call Completed: Yes Discharging clinician: Kailey Mckeon Anticipated date of discharge: 11/30/16 - Patient Status Disposition: Home, Self-Care Condition: Good Overall status at discharge: patient is back to baseline - Discharge Instructions Instructions: Peripheral Vascular Disorders (DC) Follow Up With: Radha Pike MD [Non-Partnered Physician] - 12/07/16 8:40 am - Diet and Activity Activity: resume usual activities as tolerated Diet: advance to your usual diet Hospital course: Mr. Rojas Maldonado is a 41-year-old male admitted for left foot ulcer and has been treated with IV Rocephin. He has history of IV drug abuse and the hospitalist team has turned up transthoracic echocardiogram to rule out any vegetation. A CT scan of lower extremity was also done to rule out osteomyelitis. Blood cultures showed enterococcus sensitive to ampicillin. At this time he is planned to be treated as a soft tissue infection and a hospitalist team plan is to treat him with IV antibiotics for 2 weeks duration and I am supposing with an added wound care follow-up. Right lower extremity ultrasound showed saphenous vein DVT and he is on Ribavarin. His potassium was noted 3.4 and supplemented. Blood sugars are noted in higher range but hemoglobin A1c is only 5. Since sugars are high therefore I will add low-dose Lantus regardless. Patient was planned to be sent to long-term to complete IV antibiotics and while we were waiting for the bed patient has requested to be discharged to home rather as he has some issues at home and would not go to long-term. We have explained to him that due to previous history of IV drug abuse it will not be possible to put a peripheral line and send him out and requested him to reconsider his decision. As he is adamant to leave therefore I contacted infectious disease Dr. Blunt and he plans to see him today to see if he can be switched to oral antibiotics. His insurance has already approved Xarelto which is prescribed to him. I inspected his right foot ulcer today which seems to have healed pretty well cellulitis has resolved and to good living tissue noted in a very superficial ulcer now which I would rank stage I. ID has seen the patient and switch him to oral cephalosporin. - Time Spent with Patient Total time spent providing and/or coordinating discharge services: Greater than 30 minutes - Constitutional Vitals: Temp Pulse Resp BP Pulse Ox 98.2 F 86 18 152/90 99 11/30/16 07:47 11/30/16 07:47 11/30/16 07:47 11/30/16 07:47 11/30/16 07:47 General appearance: Present: cooperative, A&O X 3, no acute distress, answers questions appropriately - Head Head exam: Present: atraumatic, normocephalic - Eye Eye exam: Present: PERRL, conjuntiva pink, sclera anicteric Pupils: Present: PERRL - Neck Neck exam general surgery: Present: supple, trachea midline. Absent: lymphadenopathy - Respiratory Respiratory exam: Present: CTAB. Absent: accessory muscle use, rales, rhonchi, wheezes - Cardiovascular Cardiovascular exam: Present: RRR, +S1, +S2. Absent: diastolic murmur, gallop, rubs, systolic murmur - GI/Abdominal GI/Abdominal exam: Present: normal bowel sounds, soft, no peritoneal signs. Absent: distended, tenderness - Extremities Exam Extremities exam: Present: warm, radial pulses palpable and symetrical. Absent : calf tenderness, cyanotic, pedal edema Additional comments: Right foot has 2.5 cm circular stage I wound with regular borders and good quality subdermal tissue. It would be ranked as a stage I to 2. No surrounding erythema or redness. No significant swelling. He expresses a lot of pain however I am not sure how tender is the surrounding tissue. Previously a CT was done and it rule out osteomyelitis. - Neurological Exam Neurological exam: Present: CN II-XII intact, oriented X3, no focal deficits. Absent: pronater drift, facial droop, speech deficit - Skin Skin exam: Present: dry, intact
[2016-11-30] MEDS: Silver Sulfadiazine 50 GM TUBE TP SCH (10:54)
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
[2016-11-30 15:08] VITALS: BP 141/94
== END 2016-11-30 16:24 | disposition home or self-care (01) | DRG 380 ==
LOC: 3BNU 21:34 → EMEROO 21:34 → 3BNU 11-22 07:05
PROVIDERS: ADMIT Internal Medicine; ATTEND Nurse Practitioner Family

== ENCOUNTER 2017-04-21 22:52 | Inpatient (IN) ==
--- NOTE | 2017-04-21 23:11 | Emergency Department Note ---
Disposition Clinical Impression: Cellulitis Qualifiers: Site of cellulitis: extremity Site of cellulitis of extremity: lower extremity Laterality: left Qualified Code(s): L03.116 - Cellulitis of left lower limb Disposition: Admitted As Inpatient Condition: Fair Lower Extremity Injury HPI - General Chief Complaint: ED Extremity Injury, Lower Stated Complaint: "Left Ankle Pain/Seen 04/20/17" Time Seen by Provider: 04/21/17 22:59 Source: patient Limitations: no limitations Nursing Notes Reviewed: Yes Vital Signs Reviewed: Yes - History of Present Illness HPI Narrative: 41-year-old male past medical history of IV drug abuse, hepatitis B, hepatitis C he reports the emergency department with concern about pain, redness, swelling of his left ankle. Patient does report a history of blood clots. Patient states he feels like is a crushing sensation. Patient denies any trauma. Patient denies any previous abscesses or infections in the past. - Related Data Home Medications Medication Instructions Recorded Confirmed Albuterol Sulfate [Ventolin Hfa] 2 puff IH Q4H PRN 11/22/16 04/22/17 Lansoprazole [Prevacid] 30 mg PO DAILY PRN 11/22/16 04/22/17 Ondansetron HCl [Zofran] 4 mg PO BID PRN 11/22/16 04/22/17 Ropinirole HCl [Requip] 0.5 mg PO HS 11/22/16 04/22/17 Triamcinolone Acet 0.1% CRM 1 appl TP BID PRN 11/22/16 04/22/17 [Kenalog] Gabapentin [Neurontin] 800 mg PO QID 04/22/17 04/22/17 Ibuprofen [Motrin] 800 mg PO TID 04/22/17 04/22/17 Rivaroxaban [Xarelto] 20 mg PO DAILY 04/22/17 04/22/17 Previous Rx's Medication Instructions Recorded Mirtazapine [Remeron] 30 mg PO HS #30 tablet 01/22/17 Allergies Allergy/AdvReac Type Severity Reaction Status Date / Time hydrocodone [From Vicodin] AdvReac Vomiting Verified 04/19/17 12:41 morphine AdvReac Hives Verified 04/22/17 02:19 All systems ED: reviewed and negative except as stated. Review of Systems: As Per HPI Constitutional: Denies: fever, chills Musculoskeletal: Reports: other Integumentary: Reports: other (Left ankle pain) Past Medical History - Past Medical History Medical history: Reports: DVT Surgical history: Reports: cholecystectomy, colectomy, hip replacement, other Psychiatric history: Reports: anxiety - Social History Smoking Status: Current every day smoker Smokeless Tobacco Status: No Alcohol use: Reports: none Drug use: Reports: opiates, IV Drug Use Physical Exam CONSTITUTIONAL: Alert and oriented X3, well-nourished, well appearing 41-year- old male, in no apparent distress HEAD: Normocephalic; atraumatic. EYES: PERRL, no scleral icterus. NOSE: The nose is normal in appearance without rhinorrhea RESP: Normal chest excursion with respiration; breath sounds clear and equal bilaterally; no wheezes, rhonchi, or rales CARD: Regular rhythm, without murmurs, rub or gallop ABD: Non-distended; non-tender, soft,without rigidity, rebound or guarding Left lower extremity: Neurovascularly intact, there is redness and induration that is about 2.5 cm in diameter right above the left medial malleolus, there is no fluctuance to suggest this to an abscess. There is warmth. There is no obvious draining. SKIN: Normal for age and race; warm and dry - General Limitations: no limitations General appearance: alert Course Vital Signs Temperature 99 F 04/21/17 22:54 Pulse Rate 95 04/21/17 22:54 Respiratory Rate 20 04/21/17 22:54 Blood Pressure 112/51 04/21/17 22:54 O2 Sat by Pulse Oximetry 98 04/21/17 22:54 Temperature 98.5 F 04/22/17 21:22 Pulse Rate 58 04/22/17 21:22 Respiratory Rate 14 04/22/17 21:22 Blood Pressure 121/73 04/22/17 21:22 O2 Sat by Pulse Oximetry 97 04/22/17 21:22 Oxygen Delivery Oxygen Delivery Room Air Extremity Injury, Lower - MDM Narrative Medical decision making narrative: 41-year-old male with past medical history of IV drug abuse presents to the emergency department with concern for cellulitis of the left lower extremity. We will obtain an x-ray as well as a sedimentation rate and CRP to look for acute signs of fracture and osteomyelitis. There was no evidence of fracture on x-ray. The sedimentation rate and CRP were mildly elevated. At this time, due to this patient's past mental history of hepatitis B and C, there is concern that he will have for follow-up. This is a return visit as well. We want to make sure this patient gets the care that he needs. We started IV vancomycin for coverage. Patient is also tachycardic here. Patient states that he is having some symptoms of withdrawal. We will also give the patient clonidine to help with his withdrawal symptoms. I discussed admission with the patient and he agreed with the plan. Admission was discussed with hospitalist and he agrees well. Patient was admitted to the hospital in no acute distress and hemodynamically stable. Doppler ultrasound was ordered for routine in the morning as there is low suspicion of DVT. The hospitalist agreed to follow up on these results. Ankle X-Ray 04/21/17 23:11 IMPRESSION: Normal x-ray of the ankle D/ / Erick Cedeño MD / Erick Cedeño MD Interpreting Provider: Erick Cedeño MD Vital Signs Temperature 99 F 04/21/17 22:54 Pulse Rate 95 04/21/17 22:54 Respiratory Rate 20 04/21/17 22:54 Blood Pressure 112/51 04/21/17 22:54 O2 Sat by Pulse Oximetry 98 04/21/17 22:54 Temperature 99.2 F 04/22/17 01:53 Pulse Rate 76 04/22/17 01:53 Respiratory Rate 16 04/22/17 01:53 Blood Pressure 105/66 04/22/17 01:53 O2 Sat by Pulse Oximetry 100 04/22/17 01:53 Oxygen Delivery Oxygen Delivery Room Air - Lab Data Result diagrams: 04/22/17 02:09 04/22/17 12:57 Lab Results 04/21/17 04/21/17 04/21/17 Range/Units 23:46 23:46 23:46 ESR 39 H (0-10) mm/hr Sodium 134 L (136-145) mEq/L Potassium 2.6 L (3.5-4.5) mEq/L Chloride 105 (98-109) mEq/L Carbon Dioxide 20 (19-29) mEq/L BUN 7 L (8-26) mg/dL Creatinine 0.71 L (0.72-1.25) mg/dL Est GFR ( Amer) > 60 (> 60) Est GFR (Non-Af Amer) > 60 (> 60) BUN/Creatinine Ratio 10 (6-26) Glucose 126 H (70-99) mg/dL Calculated Osmolality 278 L (280-300) Calcium 7.8 L (8.6-10.8) mg/dL Total Bilirubin 0.5 (0.2-1.2) mg/dL AST 49 H (5-34) Units/L ALT 47 (0-55) Units/L Alkaline Phosphatase 109 (38-126) Units/L C-Reactive Protein 19 H (Less than 5) mg/L Serum Total Protein 6.3 (6.0-8.3) g/dL Albumin 2.5 L (3.5-5.0) g/dL Globulin 3.8 H (2.4-3.5) g/dL Albumin/Globulin Ratio 0.7 L (1.1-2.2) Attestation Statement - Attestation Attestation: I examined this patient and my medical decision-making was reviewed with the Resident Physician. I agree with the documented findings, disposition and treatment plan as described except to the extent set forth below. Possible cellulitis, history of IV drug abuse. Proceed with admission and initiation of treatment of vancomycin. Resume home anticoagulation with xarelto. . We will obtain basic labs at the request of medicine. Plan to admit for treatment of cellulitis. X-ray shows no gas or evidence of foreign body.
[2017-04-21] MEDS ORDERED: CloNIDine Patch 0.3 MG PATCH (WEEKLY) TD SCH (23:15)
[2017-04-22] MEDS ORDERED: 0.9 % Sodium Chloride 1,000 ML IVC ONE (00:23)
[2017-04-22 01:12] LABS: Alanine Aminotransferase 47 Units/L (0-55); Albumin 2.5 g/dL (3.5-5.0); Albumin/Globulin Ratio 0.7 (1.1-2.2); Alkaline Phosphatase 109 Units/L (38-126); Aspartate Amino Transferase 49 Units/L (5-34); BUN/Creatinine Ratio 10 (6-26); Bilirubin,Total 0.5 mg/dL (0.2-1.2); Blood Urea Nitrogen 7 mg/dL (8-26); Calcium 7.8 mg/dL (8.6-10.8); Carbon Dioxide 20 mEq/L (19-29); Chloride 105 mEq/L (98-109); Globulin 3.8 g/dL (2.4-3.5); Glucose 126 mg/dL (70-99); Osmolality,Calculated 278 (280-300); Potassium 2.6 mEq/L (3.5-4.5); Sodium 134 mEq/L (136-145); Total Protein 6.3 g/dL (6.0-8.3); eGFR For African Americans > 60 (> 60); eGFR For Non-African Americans > 60 (> 60)
[2017-04-22] MEDS ORDERED: Acetaminophen 325 MG TABLET PO PRN (01:28)
[2017-04-22] MEDS ORDERED: Naloxone 0.4 MG/ML INJ IVP PRN (01:28)
[2017-04-22] MEDS ORDERED: Ondansetron 4 MG/2 ML VIAL IVP PRN (01:28)
[2017-04-22] MEDS ORDERED: 0.9 % Sodium Chloride 1,000 ML IVC SCH (01:30)
--- NOTE | 2017-04-22 01:38 | Internal Med History&Physical ---
Date of Encounter: 04/22/17 Time of Encounter: 01:20 Assessment and Plan (1) Cellulitis Current visit: Yes Status: Acute Acute cellulitis of left ankle - likely acute on chronic cellulitis secondary to history of trauma Continue IV Vancomycin, IV fluids Blood cultures - pending Ankle x-ray - normal ESR - 39 CRP - 19 Cardiac telemetry, labs in a.m., monitor closely Qualifiers: Site of cellulitis: extremity Site of cellulitis of extremity: lower extremity Laterality: left Qualified Code(s): L03.116 - Cellulitis of left lower limb (2) Hypokalemia Current visit: Yes Status: Acute Hypokalemia and Hypomagnesemia - unclear etiology Replace electrolytes, monitor labs closely (3) Thrombocytopenia Current visit: Yes Status: Chronic Chronic thrombocytopenia, stable, no bleeding (4) IV drug user Current visit: Yes Status: Chronic IV drug user - states he uses pain medication - patient also has a history of hepatitis B and hepatitis C Most recently used about 1 month ago Counseled about cessation (5) Chronic deep vein thrombosis (DVT) Current visit: Yes Status: Acute Patient does have a 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 Patient follows up with oncology regularly He has been on Xarelto for anticoagulation - unclear if he has stopped taking this or not Qualifiers: DVT location: lower extremity Laterality: bilateral Qualified Code(s): I82.503 - Chronic embolism and thrombosis of unspecified deep veins of lower extremity, bilateral (6) Tobacco abuse Current visit: Yes Status: Chronic Counseled about cessation, nicotine patch He states he smokes about a pack and half cigarettes daily Internal Medicine - H&P: HPI Chief complaint: Left ankle pain and swelling Admitted From: Emergency Dept Plans for Post Hospital Care: Home History of present illness: Mr. Santos is a 41 year old male with past medical history of recurrent DVT, hepatitis B, hepatitis C, chronic IV drug use, tobacco abuse, chronic pain, depression and history of major pelvic trauma. Patient presented ED with complaints of ankle pain and swelling. Examined in the room. Patient is awake and alert. Not in any distress. Able to provide all history. No family members at bedside. Patient states over the past 4-5 days his left ankle has been hurting and has been swollen. He states symptoms have gradually worsened. Describes pain as sharp. Rates it 7/10. Worse with weightbearing and movement. No alleviating factors. Patient seems a chronic history of cellulitis. Apparently about 5-6 months ago he dropped a oxygen tank on his left foot and has had problems ever since. Patient states he has not had any new injury or trauma recently. No insect bite. He denies chest pain or shortness of breath. Denies palpitations. No headache or dizziness or abdominal pain or fever. Patient denies calf tenderness or swelling. No other associated symptoms. No other acute complaints. Initial workup in the ED is significant for elevated ESR and elevated CRP. Patient also has hypokalemia and hypomagnesemia. Patient is being admitted for left ankle cellulitis. He will need a vancomycin. Patient has been explained about his condition and can detail. He understood and agreed. No unanswered questions. CODE STATUS full code. Past Med Surg Social Fam HX - Past Medical History Medical history: DVT Psychiatric history: anxiety - Past Surgical History Surgical History: cholecystectomy, colectomy, hip replacement, other - Social History Smoking Status: Current every day smoker Smokeless Tobacco Status: No Alcohol use: none Drug use: opiates, IV Drug Use - Family History Mother Adopted: Yes Living Status: Age at : 63 Cause of : cancer Hx Family Cancer: Yes Father Living Status: Still Living Hx Family Cancer: Yes Internal Medicine - H&P: Meds Albuterol Sulfate [Ventolin Hfa] 2 puff IH Q4H PRN 11/22/16 [History] Lansoprazole [Prevacid] 30 mg PO DAILY PRN 11/22/16 [History] Ondansetron HCl [Zofran] 4 mg PO BID PRN 11/22/16 [History] Ropinirole HCl [Requip] 0.5 mg PO HS 11/22/16 [History] Triamcinolone Acet 0.1% CRM [Kenalog] 1 appl TP BID PRN 11/22/16 [History] Rivaroxaban [Xarelto] 15 mg PO BID 21 Days tablet 11/26/16 [Rx] Mirtazapine [Remeron] 30 mg PO HS #30 tablet 01/22/17 [Rx] Gabapentin [Neurontin] 800 mg PO TID 04/22/17 [History] Ibuprofen [Motrin] 800 mg PO TID 04/22/17 [History] 3 Allergy/AdvReac Type Severity Reaction Status Date / Time hydrocodone [From Vicodin] AdvReac Vomiting Verified 04/19/17 12:41 morphine AdvReac Hives Verified 04/22/17 02:19 All Systems PM: A 10-system review of systems was performed and is negative for pertinent findings except as documented above in the HPI. - Constitutional Constitutional: fatigue, no fever(s), no weakness - EENT Eyes: no blurry vision - Cardiovascular Cardiovascular ROS IM: no chest pain, no claudication, no dyspnea, no dyspnea on exertion, no edema, no orthopnea, no palpitations, no syncope - Respiratory Respiratory: no cough, no dyspnea, no dyspnea on exertion, no wheezing, no chest congestion - Gastrointestinal Gastrointestinal: no abdominal pain, no bloating, no cramping, no diarrhea, no hematochezia, no nausea, no vomiting - Genitourinary Genitourinary ROS male: no dysuria - Musculoskeletal Additional comments: Left ankle pain and swelling and redness - Neurological Neurological ROS: no abnormal gait, no confusion, no dizziness, no numbness, no tingling, no weakness - Constitutional Vitals: Temp Pulse Resp BP Pulse Ox 99 F 95 14 121/66 98 04/21/17 22:54 04/21/17 22:54 04/22/17 01:31 04/22/17 01:31 04/21/17 22:54 General appearance: Present: cooperative, A&O X 3, pleasant, no acute distress, answers questions appropriately - Head Head exam: Present: atraumatic - Eye Eye exam: Present: EOMI - ENT ENT exam: Present: mucous membranes dry - Respiratory Respiratory exam: Present: CTAB. Absent: rales, respiratory distress, rhonchi, wheezes, tachypnea - Cardiovascular Cardiovascular exam: Present: RRR, +S1, +S2 - GI/Abdominal GI/Abdominal exam: Present: soft. Absent: distended, firm, guarding, tenderness - Extremities Exam Extremities exam: Present: radial pulses palpable and symmetrical. Absent: calf tenderness, cyanotic, pedal edema Additional comments: Left ankle swelling medial aspect. Tenderness present with erythema. Limited range of motion of left ankle. - Neurological Exam Neurological exam: Present: alert, oriented X3, no focal deficits. Absent: facial droop, speech deficit Internal Med - H&P Results - Labs CBC & Chem 7: 04/22/17 02:09 04/22/17 02:09
[2017-04-22] MEDS: Vancomycin 1,000 MG in D5% in Water 250 ML IVPB ONE ×2 (01:51→07:19)
[2017-04-22 02:18] LABS: Basophils % 0.2 %; Eosinophils % 0.3 %; Immature Platelets 4.3 % (1.1-6.1); Red Cell Distribution Width 14.1 % (11.5-14.5)
[2017-04-22 02:22] LABS: Hematocrit 28.8 % (37.5-50.1); Immature Granulocytes % 0.7 % (0-4); Lymphocytes # 0.7 K/mcL (0.6-4.6); Lymphocytes % 6.5 %; Mean Corpuscular HGB Conc 34.7 g/dL (31.6-35.5); Mean Corpuscular Hemoglobin 30.1 pg (28.0-33.3); Mean Corpuscular Volume 86.7 fL (83.0-100.0); Mean Platelet Volume 10.6 fL (9.4-12.4); Monocytes # 0.7 K/mcL (0.0-1.3); Monocytes % 6.3 %; Neutrophils # 9.6 K/mcL (1.6-8.9); Red Blood Count 3.32 M/mcL (4.19-5.50)
[2017-04-22 02:28] LABS: Platelet Count 96 K/mcL (140-400)
[2017-04-22 02:33] LABS: BUN/Creatinine Ratio 8 (6-26); Blood Urea Nitrogen 6 mg/dL (8-26); Calcium 7.9 mg/dL (8.6-10.8); Carbon Dioxide 21 mEq/L (19-29); Chloride 107 mEq/L (98-109); Glucose 128 mg/dL (70-99); Magnesium 1.1 mg/dL (1.6-2.6); Osmolality,Calculated 281 (280-300); Potassium 2.7 mEq/L (3.5-4.5); Sodium 136 mEq/L (136-145); eGFR For African Americans > 60 (> 60); eGFR For Non-African Americans > 60 (> 60)
[2017-04-22 02:34] LABS: Bilirubin,Urine Negative (Negative); Blood,Urine Negative (Negative); Clarity,Urine Clear (Clear); Color,Urine Yellow (Yellow); Glucose,Urine (UA) Normal (Normal); Ketones,Urine Negative (Negative); Leukocyte Esterase,Urine Negative (Negative); Nitrite,Urine Negative (Negative); PH,Urine 6.5 pH Units (5.0-8.0); Protein,Urine Negative (Neg-Trace); Specific Gravity,Urine 1.007 (1.010-1.025); Urobilinogen,Urine Normal (Normal)
[2017-04-22 02:44] LABS: Platelet Estimate Decreased (Normal)
[2017-04-22] MEDS ORDERED: *HR* OxyCODONE/APAP 5/325 TABLET PO ONE (03:51)
[2017-04-22] MEDS ORDERED: Magnesium Oxide 400 MG TABLET PO ONE (04:59)
[2017-04-22] MEDS ORDERED: Vancomycin 1,000 MG in D5% in Water 250 ML IVPB SCH (06:00)
[2017-04-22] MEDS: Nicotine 21 MG PATCH.TD24 TD SCH (09:27)
--- NOTE | 2017-04-22 10:31 | Event Note ---
Date of Encounter: 04/22/17 Time of Encounter: 10:30 Patient was admitted early this morning for left ankle cellulitis. He has history of IV drug abuse, patient is reported that he injected it to left ankle area, ankle exam intact no swelling or redness no open draining. We will continue IV vancomycin he is awaiting for IV line placement. His potassium was 2.7 on admission I will rechecked he received a total of 80 mEq of potassium chloride.
[2017-04-22] MEDS ORDERED: *HR* OxyCODONE/APAP 5/325 TABLET PO PRN (11:43)
[2017-04-22] MEDS: *HR* OxyCODONE/APAP 5/325 TABLET PO PRN ×3 (11:55→20:30)
[2017-04-22 13:37] LABS: BUN/Creatinine Ratio 10 (6-26); Blood Urea Nitrogen 7 mg/dL (8-26); Calcium 7.8 mg/dL (8.6-10.8); Carbon Dioxide 22 mEq/L (19-29); Chloride 109 mEq/L (98-109); Glucose 120 mg/dL (70-99); Magnesium 1.5 mg/dL (1.6-2.6); Osmolality,Calculated 285 (280-300); Potassium 3.3 mEq/L (3.5-4.5); Sodium 138 mEq/L (136-145); eGFR For African Americans > 60 (> 60); eGFR For Non-African Americans > 60 (> 60)
[2017-04-22] MEDS ORDERED: D5% in 0.9% NACL 1,000 ML IVC ONE (13:45)
[2017-04-22] MEDS: Vancomycin 1,250 MG in D5% in Water 250 ML IVPB SCH (13:52)
[2017-04-22] MEDS: Ibuprofen 800 MG TABLET PO SCH ×2 (15:07→21:59)
[2017-04-22] MEDS: *HR* Rivaroxaban 10 MG TABLET PO SCH (15:07)
[2017-04-22] MEDS: Gabapentin 400 MG CAPSULE PO SCH ×2 (15:08→20:30)
[2017-04-22 17:43] LABS: INR 1.9; Prothrombin Time 20.6 Seconds (9.4-12.1)
[2017-04-22] MEDS ORDERED: *HR* HYDROmorphone 2 MG/ML SYRINGE IVP ONE (22:56)
[2017-04-23] MEDS: *HR* OxyCODONE/APAP 5/325 TABLET PO PRN (00:29)
[2017-04-23] MEDS: Vancomycin 1,250 MG in D5% in Water 250 ML IVPB SCH ×2 (00:59→11:38)
[2017-04-23] MEDS: *HR* OxyCODONE/APAP 10/325 TABLET PO PRN ×5 (05:03→21:29)
[2017-04-23 05:21] LABS: Hemoglobin 9.7 g/dL (12.9-16.9)
[2017-04-23 05:23] LABS: Basophils % 0.6 %; Eosinophils # 0.2 K/mcL (0.0-0.6); Eosinophils % 4.2 %; Hematocrit 28.6 % (37.5-50.1); Immature Granulocytes % 0.4 % (0-4); Lymphocytes # 1.8 K/mcL (0.6-4.6); Lymphocytes % 34.3 %; Mean Corpuscular HGB Conc 33.9 g/dL (31.6-35.5); Mean Corpuscular Volume 88.5 fL (83.0-100.0); Mean Platelet Volume 10.6 fL (9.4-12.4); Monocytes # 0.5 K/mcL (0.0-1.3); Monocytes % 9.2 %; Neutrophils # 2.7 K/mcL (1.6-8.9); Platelet Count 107 K/mcL (140-400); Red Blood Count 3.23 M/mcL (4.19-5.50); Red Cell Distribution Width 14.6 % (11.5-14.5); Segmented Neutrophils % 51.3 %
[2017-04-23 05:36] LABS: BUN/Creatinine Ratio 15 (6-26); Blood Urea Nitrogen 10 mg/dL (8-26); Calcium 8.2 mg/dL (8.6-10.8); Carbon Dioxide 27 mEq/L (19-29); Chloride 110 mEq/L (98-109); Glucose 91 mg/dL (70-99); Osmolality,Calculated 289 (280-300); Potassium 3.6 mEq/L (3.5-4.5); Sodium 140 mEq/L (136-145); eGFR For African Americans > 60 (> 60); eGFR For Non-African Americans > 60 (> 60)
[2017-04-23] MEDS: Gabapentin 400 MG CAPSULE PO SCH ×3 (08:36→21:29)
[2017-04-23] MEDS: Ibuprofen 800 MG TABLET PO SCH ×2 (08:36→16:23)
[2017-04-23] MEDS: Nicotine 21 MG PATCH.TD24 TD SCH (08:36)
--- NOTE | 2017-04-23 10:57 | Electrocardiograph Report ---
[place] [id number] Test Date: 2017-04-22 Pat Name: Rojas Santos Department: 114 Room: [facility] Gender: M [employer]: [id number] : 1975 Requested By: Chalo Peguero Order Number: [id number] Reading MD: Mele Bishop MD Measurements Intervals [place] Rate: 74 P: 58 MA: 176 QRS: 41 QRSD: 102 T: 48 QT: 377 QTc: 404 Interpretive Statements SINUS RHYTHM Electronically Signed On 04-23-2017 10:55:54 EST by Mele Bishop MD
--- NOTE | 2017-04-23 14:21 | Internal Med Progress Note ---
Date of Encounter: 04/23/17 Time of Encounter: 14:19 - Assessment and plan (1) Cellulitis Current Visit: Yes Status: Acute Assessment and plan: Patient is a cellulitis of left ankle. Presently on vancomycin day 3. Ankle x-ray normal. Blood cultures negative so far. Patient is still claims that he is in pain at the left ankle. Patient is presently getting intravenous opioids. Qualifiers: Site of cellulitis: extremity Site of cellulitis of extremity: lower extremity Laterality: left Qualified Code(s): L03.116 - Cellulitis of left lower limb (2) IV drug user Current Visit: Yes Status: Chronic Assessment and plan: Patient is known IV drug user. Patient claims that he did not shoot the drugs in his ankle area. (3) Thrombocytopenia Current Visit: Yes Status: Chronic Assessment and plan: Etiology was from was not opinion is uncertain. It can be multifactorial possibility of her hepatitis C/hepatitis B is extremely high Patient says that previously somebody told him that he has a hepatitis C. (4) DVT prophylaxis Current Visit: No Status: Acute Assessment and plan: SCD - Subjective Interval history: Patient seen and examined. Chart reviewed. Patient is comfortably lying in bed. Patient is still in ankle pain. Patient denies chest pain, nausea, vomiting, abdominal pain, dizziness and diarrhea. - Constitutional Vitals: Temp Pulse Resp BP Pulse Ox 98.9 F 60 14 123/73 98 04/23/17 11:19 04/23/17 11:19 04/23/17 11:19 04/23/17 11:19 04/23/17 11:19 General appearance: Present: cooperative, A&O X 3, pleasant, no acute distress, answers questions appropriately - Head Head exam: Present: atraumatic, normocephalic - Eye Eye exam: Present: PERRL, conjuntiva pink, sclera anicteric Pupils: Present: PERRL - Neck Neck exam general surgery: Present: supple, trachea midline. Absent: lymphadenopathy - Respiratory Respiratory exam: Present: CTAB. Absent: accessory muscle use, rales, rhonchi, wheezes - Cardiovascular Cardiovascular exam: Present: RRR, +S1, +S2. Absent: diastolic murmur, gallop, rubs, systolic murmur - GI/Abdominal GI/Abdominal exam: Present: normal bowel sounds, soft, no peritoneal signs. Absent: distended, tenderness - Extremities Exam Extremities exam: Present: warm, radial pulses palpable and symmetrical. Absent : calf tenderness, cyanotic, pedal edema - Neurological Exam Neurological exam: Present: CN II-XII intact, oriented X3, no focal deficits. Absent: pronater drift, facial droop, speech deficit - Skin Skin exam: Present: dry, intact Internal Medicine: Result - Labs CBC & Chem 7: 04/23/17 05:10 04/23/17 05:10 Labs: Short CBC 04/23/17 Range/Units 05:10 WBC 5.2 D (4.3-11.1) K/mcL Hgb 9.7 L (12.9-16.9) g/dL Hct 28.6 L (37.5-50.1) % Plt Count 107 L (140-400) K/mcL Neutrophils # 2.7 (1.6-8.9) K/mcL BMP 04/23/17 05:10 Sodium 140 Potassium 3.6 Chloride 110 H Carbon Dioxide 27 BUN 10 Creatinine 0.67 L Glucose 91 Calcium 8.2 L - ABG Interpretation ABG results: PT/INR, D-dimer PT 20.6 Seconds (9.4-12.1) H 04/22/17 17:15 Consult Discharge Plan - Plan Referrals: NONE,PCP [Primary Care Provider] -
[2017-04-23] MEDS: *HR* Rivaroxaban 10 MG TABLET PO SCH (16:23)
[2017-04-24] MEDS: *HR* OxyCODONE/APAP 10/325 TABLET PO PRN ×2 (01:38→10:04)
[2017-04-24] MEDS: Vancomycin 1,250 MG in D5% in Water 250 ML IVPB SCH (01:56)
[2017-04-24] MEDS: *HR* Morphine 2 MG/ML SYRINGE IVP PRN ×2 (03:08→05:53)
[2017-04-24 07:20] VITALS: BP 112/75
[2017-04-24 07:21] LABS: Basophils % 0.4 %; Eosinophils # 0.3 K/mcL (0.0-0.6); Eosinophils % 4.8 %; Hemoglobin 9.5 g/dL (12.9-16.9); Immature Granulocytes % 0.4 % (0-4); Lymphocytes # 1.6 K/mcL (0.6-4.6); Lymphocytes % 30.6 %; Mean Corpuscular HGB Conc 33.9 g/dL (31.6-35.5); Mean Corpuscular Hemoglobin 29.9 pg (28.0-33.3); Mean Corpuscular Volume 88.1 fL (83.0-100.0); Monocytes # 0.5 K/mcL (0.0-1.3); Monocytes % 9.9 %; Neutrophils # 2.8 K/mcL (1.6-8.9); Platelet Count 104 K/mcL (140-400); Red Blood Count 3.18 M/mcL (4.19-5.50); Red Cell Distribution Width 14.6 % (11.5-14.5); Segmented Neutrophils % 53.9 %
[2017-04-24 07:40] LABS: Alanine Aminotransferase 42 Units/L (0-55); Albumin 2.2 g/dL (3.5-5.0); Albumin/Globulin Ratio 0.5 (1.1-2.2); Alkaline Phosphatase 84 Units/L (38-126); Aspartate Amino Transferase 51 Units/L (5-34); BUN/Creatinine Ratio 13 (6-26); Bilirubin,Total 0.3 mg/dL (0.2-1.2); Blood Urea Nitrogen 9 mg/dL (8-26); Calcium 7.7 mg/dL (8.6-10.8); Carbon Dioxide 26 mEq/L (19-29); Chloride 110 mEq/L (98-109); Globulin 4.1 g/dL (2.4-3.5); Glucose 93 mg/dL (70-99); Osmolality,Calculated 288 (280-300); Potassium 3.4 mEq/L (3.5-4.5); Sodium 140 mEq/L (136-145); Total Protein 6.3 g/dL (6.0-8.3); eGFR For African Americans > 60 (> 60); eGFR For Non-African Americans > 60 (> 60)
--- NOTE | 2017-04-24 09:17 | Discharge Summary ---
Date of Encounter: 04/24/17 Time of Encounter: 09:15 - Discharge Diagnosis (1) Tobacco abuse Priority: Secondary Status: Chronic Comments: chronic (2) Cellulitis Priority: Primary Status: Acute Comments: received vanco for 4 days looks better Qualifiers: Site of cellulitis: extremity Site of cellulitis of extremity: lower extremity Laterality: left Qualified Code(s): L03.116 - Cellulitis of left lower limb (3) Thrombocytopenia Priority: Secondary Status: Chronic Comments: chronic likley due to underlying liver disease (4) IV drug user Priority: Secondary Status: Chronic Comments: still continues to use drugs and asking for more narcotics - Discharge Medications Home Medications: Albuterol Sulfate [Ventolin Hfa] 2 puff IH Q4H PRN 11/22/16 [History] Lansoprazole [Prevacid] 30 mg PO DAILY PRN 11/22/16 [History] Mirtazapine [Remeron] 30 mg PO HS #30 tablet 01/22/17 [Rx] Gabapentin [Neurontin] 800 mg PO QID 04/22/17 [History] Ibuprofen [Motrin] 800 mg PO TID 04/22/17 [History] Allergies/Adverse Reactions: 3 Allergy/AdvReac Type Severity Reaction Status Date / Time hydrocodone [From Vicodin] AdvReac Vomiting Verified 04/19/17 12:41 morphine AdvReac Hives Verified 04/22/17 02:19 Date of admission: 04/22/17 01:28 Primary care physician: PCP NONE Consults: 04/22/17 02:51 Consult to Nutrition [CONS] Routine Comment: Consulting Provider: NUTRITION Reason for Dietary Consult: MST Score 04/24/17 08:48 Consult to Postal Service Clerk [CONS] Routine Reason for SW Consult: Patient/family request Discharging clinician: Ingrid Leos Anticipated date of discharge: 04/24/17 - Patient Status Disposition: Home, Self-Care Condition: Good - Discharge Instructions Follow Up With: NONE,PCP [Primary Care Provider] - Hospital course: Mr. Santos is a 41 year old male - Time Spent with Patient Total time spent providing and/or coordinating discharge services: Greater than 30 minutes - Constitutional Vitals: Temp Pulse Resp BP Pulse Ox 98.1 F 61 16 112/75 97 04/24/17 07:14 04/24/17 07:14 04/24/17 07:14 04/24/17 07:14 04/24/17 07:14 General appearance: Present: cooperative, A&O X 3, pleasant, no acute distress, answers questions appropriately
[2017-04-24] MEDS ORDERED: Aminoglycoside Consult 1 EACH MC ONE (10:37)
== END 2017-04-24 10:38 | disposition home or self-care (01) | DRG 383 ==
LOC: 3NENU 22:52 → EMEROO 22:52 → SUATTDRO 04-22 01:28 → 3NENU 04-22 01:32
PROVIDERS: ADMIT Internal Medicine; ATTEND Hospitalist